=== PATIENT | female | born 1935 | race African-American/Black ===

== ENCOUNTER 2019-08-28 12:05 | Inpatient (IN) | payer MEDICARE ==
[2019-08-28] VITALS (8 sets, daily range): BP systolic 105–133; BP diastolic 50–75
[~2019-08-28] VITALS: Ht 162.6 cm; Wt 59.4 kg
--- OUTSIDE RECORDS SUMMARY | 2019-08-28 12:08 | XMS REPORT ---
Author Author [facility] Address Unknown Phone Unavailable Care Team Providers Care Television Actor Name Role Phone Unavailable Unavailable Problems This patient has no known problems. Allergies, Adverse Reactions, Alerts This patient has no known allergies or adverse reactions. Medications This patient has no known medications.
[2019-08-28] MEDS ORDERED: SODIUM CHLORIDE 0.9% 500ML 500 ML IV ONE ×2 (12:30→14:45)
[2019-08-28 12:50] LABS: BASOPHILS % 0.2 % (0.0-1.0); HEMOGLOBIN 7.1 g/dL (12.0-16.0); LYMPHOCYTES % 2.8 % (18.0-39.1); MEAN CORPUSCULAR HEMOGLOBIN 25.9 pg (28-32); MONOCYTES % 6.6 % (4.4-11.3); NEUTROPHILS % 89.3 % (38.7-80.0); RED BLOOD COUNT 2.74 x10e6/uL (3.6-5.1); RED CELL DISTRIBUTION WIDTH 16.3 % (11.7-14.4)
[2019-08-28 12:51] LABS: LYMPHOCYTES # (AUTO) 0.6 (1.0-3.2); MONOCYTES # (AUTO) 1.5 (0.2-0.8); NEUTROPHILS # (AUTO) 19.7 (2.1-6.9)
[2019-08-28 13:10] LABS: HEMATOCRIT 22.2 % (34.2-44.1)
[2019-08-28 13:17] LABS: CREATINE KINASE MB 0.5 ng/mL (0-5.0)
[2019-08-28 13:18] LABS: ALBUMIN/GLOBULIN RATIO 0.4 (0.8-2.0); ANION GAP 17.4 mmol/L (8-16); CALCIUM 9.5 mg/dL (8.4-10.2); CREATININE, SERUM 2.18 mg/dL (0.57-1.11); MAGNESIUM 2.3 MG/DL (1.3-2.1); POTASSIUM 3.4 mmol/L (3.5-5.1)
[2019-08-28] MEDS ORDERED: FUROSEMIDE INJ 10 MG/ML 2 ML VIAL IV PRN (13:30)
[2019-08-28] MEDS ORDERED: VANCOMYCIN 1GM/NS 250 ML 250 ML IV ONE (13:30)
[2019-08-28] MEDS ORDERED: SODIUM CHLORIDE 0.9% 250ML 250 ML IV ONE (13:30)
[2019-08-28] MEDS ORDERED: ACETAMINOPHEN 1000 MG/100 ML IV ONE (13:40)
--- NOTE | 2019-08-28 13:52 | Diagnostic Imaging Report ---
EXAMINATION: CHEST SINGLE (PORTABLE) INDICATION: Fever COMPARISON: None FINDINGS: LINES/TUBES:Tracheostomy tube projects over the level of the thoracic inlet. Left PICC line terminates in the subclavian vein. EKG leads overlie the chest. LUNGS:The lungs are well-inflated. Left retrocardiac airspace opacity partially silhouetting the left hemidiaphragm. PLEURA:No pleural effusion or pneumothorax. MEDIASTINUM:The cardiomediastinal silhouette appears normal in size and shape. Atherosclerotic calcifications of the thoracic aorta. BONES/SOFT TISSUES:No acute osseous injury. ABDOMEN:No free air under the diaphragm. IMPRESSION: Left retrocardiac airspace opacity, possibly representing subsegmental atelectasis versus superimposed aspiration or pneumonia. Signed by: Amada Santos MD on 08/28/2019 1:50 PM
[2019-08-28] MEDS: CEFEPIME 2 GM/NS 0.9% 100 ML 100 ML IV SCH (14:09)
--- NOTE | 2019-08-28 14:16 | Diagnostic Imaging Report ---
CT BRAIN WO HISTORY: Altered mental status COMPARISON: None. Technique: Noncontrast axial scans were obtained from skull base to the vertex. Coronal and sagittal reconstructions obtained from the axial data. One or more of the following dose reduction techniques were used: Automated exposure control, adjustment of the mA and/or kV according to patient size, and/or utilization of iterative reconstruction technique. DISCUSSION: Scalp/Skull: Unremarkable. Brain sulci: Mildly prominent. Ventricles: Compensatory dilatation. Extra-axial spaces: No masses or fluid collections. Carotid siphon calcifications are present. Parenchyma: Moderate bilateral deep white matter hypodensity is likely chronic microvascular ischemic change. 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 Incidental pineal cyst measures up to 0.8 cm. Otherwise, no masses, hemorrhage, or large vascular territory acute infarct. Dural sinuses: No abnormal densities. Sellar/Suprasellar region: Intact. Skull base: Intact. Incidental findings: Bilateral ocular lens replacement. Bilateral mastoid/middle ear effusions are present. IMPRESSION: 1. No acute intracranial abnormalities. 2. Moderate supratentorial chronic microvascular ischemic change. Generalized cerebral volume loss. Signed by: Dr. Amol Coffey M.D. on 08/28/2019 2:14 PM
[2019-08-28 14:19] LABS: BAND NEUTROPHILS % (MANUAL) 6 %; HYPOCHROMASIA MODERATE; LYMPHOCYTES % (MANUAL) 3 % (19-48); MONOCYTES % (MANUAL) 5 % (3.4-9.0); MYELOCYTES % (MANUAL) 1 % (0-0); NEUTROPHILS % (MANUAL) 83 % (40-74)
[2019-08-28 14:20] LABS: ANISOCYTOSIS MODERATE; POIKILOCYTOSIS SLIGHT
[2019-08-28 14:21] LABS: PLATELET COUNT 203 x10e3/uL (140-360); PLATELET ESTIMATE ADEQUATE; PLATELET MORPHOLOGY COMMENT NORMAL; RBC MORPHOLOGY COMMENT ABNORMAL
[2019-08-28 14:39] LABS: ABG HCO3 29 mmol/L (23-28); ABG PCO2 35 mmHg (41-51); ABG PH 7.52 (7.31-7.41); ABG PO2 100 mmHg (80-105)
[2019-08-28 14:41] LABS: CLARITY,URINE SL CLOUDY (CLEAR); COLOR,URINE YELLOW (YELLOW)
[2019-08-28 14:42] LABS: BILIRUBIN,URINE NEGATIVE (NEGATIVE); KETONES,URINE NEGATIVE (NEGATIVE); LEUKOCYTE ESTERASE ,URINE TRACE (NEGATIVE); NITRITE,URINE NEGATIVE (NEGATIVE); PROTEIN,URINE DIPSTICK 2+ (NEGATIVE); URINE UROBILINOGEN 0.2 mg/dL (0.2 - 1)
[2019-08-28] MEDS ORDERED: ONDANSETRON HCL INJ 2MG/ML 2ML 2 MG/ML VIAL IV PRN (15:00)
[2019-08-28] MEDS ORDERED: DEXTROSE 50% SYRINGE 50 ML IV PRN (15:00)
[2019-08-28 15:01] LABS: AMORPHOUS SEDIMENT,URINE MANY (FEW); BACTERIA,URINE FEW /HPF; EPITHELIAL CELLS,URINE RARE /LPF; WBC,URINE (MAN) 0-5 /HPF (0-5)
--- NOTE | 2019-08-28 15:22 | NUR ---
[id number] consult dictated sepsis r/o HCAP
[2019-08-28] MEDS: AZTREONAM 2GM/NS 100ML 100 ML IV SCH ×2 (16:46→21:39)
[2019-08-28 17:07] LABS: INR 1.21; PROTHROMBIN TIME 15.9 seconds (11.9-14.5)
[2019-08-28 17:08] LABS: PARTIAL THROMBOPLASTIN TIME 39.9 seconds (23.8-35.5)
--- NOTE | 2019-08-28 17:37 | Diagnostic Imaging Report ---
EXAMINATION: CHEST XRAY LINE PLACEMENT INDICATION: Line placement COMPARISON: Chest radiograph 08/28/2019 FINDINGS: LINES/TUBES:Interval placement of right IJ central venous catheter which terminates just beyond the superior cavoatrial junction. Tracheostomy tube terminates in the region of the thoracic inlet. Left PICC line terminates in the left subclavian vein. EKG leads overlie the chest. LUNGS:The lungs are well-inflated. There is left basilar opacity silhouetting the left blanca diaphragm. PLEURA:No pleural effusion or pneumothorax. MEDIASTINUM:The cardiomediastinal silhouette appears unchanged in size and shape. BONES/SOFT TISSUES:No acute osseous injury. ABDOMEN:No free air under the diaphragm. IMPRESSION: Interval placement of right IJ central venous catheter terminating just beyond the superior cavoatrial junction. Line is ready for immediate use. Otherwise, no significant change. Signed by: Amada Santos MD on 08/28/2019 5:35 PM
[2019-08-28] MEDS: INSULIN LISPRO 100 UNIT/1 ML 3ML VIAL SQ SCH ×2 (18:27→21:00)
[2019-08-28 19:25] LABS: CREATINE KINASE MB 0.8 ng/mL (0-5.0)
--- NOTE | 2019-08-28 19:30 | NUR ---
Received patient calm in bed, stable, nonverbal but nods in response to commands
[2019-08-28] MEDS ORDERED: SODIUM CHLORIDE 0.9% 250ML 250 ML ONE (21:21)
--- NOTE | 2019-08-28 21:42 | Consultation ---
DATE OF CONSULTATION: 08/28/2019 Pulmonary Critical Care Consultation CHIEF COMPLAINT: Infiltrates and fever in a patient with chronic ventilator dependence. HISTORY OF PRESENT ILLNESS: The patient is an 84-year-old woman. She has a history of ovarian cancer that required surgery and partial resection 3 to 4 months ago at [facility]. According to the family, there is still some residual tumor. She was not able to undergo chemotherapy because of her overall performance status. After the surgery, she had difficulty weaning from the ventilator and required tracheostomy. The patient was subsequently sent to [place]. She was continued on IV antibiotics and therapy there. She required dialysis at [place] temporarily. She was unable to be weaned from the ventilator, was sent to [facility]. The patient has remained at the [facility] for the past month and now has worsening fever and tachypnea. She was transferred to [facility]. She has an elevated white count and the new infiltrate on chest x-ray. PAST SURGICAL HISTORY: 1. Status post debulking of ovarian tumor as noted above. 2. Status post tracheostomy. PAST MEDICAL HISTORY: 1. Ovarian cancer. 2. COPD. 3. History of renal insufficiency. 4. Hypertension. SOCIAL HISTORY: The patient was a smoker up until about 6 months ago. She is not an active drinker. She is at [facility]. REVIEW OF SYSTEMS: There is a history of fever and chills. There is no headache. She has a tracheostomy. She also has a PICC line in from the [facility]. She has no chest pain. She has some increased phlegm production. She has some abdominal distension. There is no leg edema. She has no new neurological complaints. PHYSICAL EXAMINATION: VITAL SIGNS: Her temperature is 102.8. Her blood pressure is 148/53, she has a pulse of 94, and respiratory rate of 18. She is currently on an assist-control mode of ventilation with a tidal volume of 500 and a sedimentation rate of 16. Tracheostomy site is clean. CARDIAC: Reveals regular rate and rhythm with normal S1 and S2. LUNGS: Auscultation of lungs shows decreased breath sounds at the bases. There is no wheezing. ABDOMEN: Soft, nontender. There is no rebound or guarding. EXTREMITIES: Show no leg edema or calf tenderness. There is a left PICC line in place. The site looks clean. NEUROLOGICAL: Shows no focal abnormalities. LABORATORY DATA: White blood cell count is 22, hemoglobin is 7.1, and the platelet count is 203. The BUN to creatinine ratio is 152/2.18. Blood sugar is 357. AST is 122 and ALT is 187. BNP is 585. Troponin I 0.51. Lactic acid is 2.3. RADIOGRAPHIC DATA: Chest x-ray shows left retrocardiac infiltrate. CT scan of the head shows no acute disease. IMPRESSION: 1. Healthcare-associated pneumonia with severe sepsis, present on admission. 2. Yghqt-js-cumkrjl respiratory failure. 3. Oiays-zk-xczjzfj kidney injury. 4. Nontransmural myocardial infarction. 5. Diabetes with hyperglycemia. 6. Moderate protein-calorie malnutrition. 7. Ovarian cancer. PLAN: 1. Panculture the patient and begin appropriate antibiotics. 2. Fluid bolus at 30 mL/kg. 3. Remove PICC line and place new Trialysis catheter. 4. Continue mechanical ventilation. We will decrease the minute ventilation slightly to prevent worsening respiratory alkalosis. 5. Enteral feedings. 6. Echocardiogram and Cardiology evaluation. 7. Poor prognosis. Josh Powers MD [facility]/MOD[facility] /[id number]
--- NOTE | 2019-08-28 22:00 | NUR ---
Due for blood transfusion, 2 units. blood started, patient stable
--- NOTE | 2019-08-28 22:12 | Consultation ---
DATE OF CONSULTATION: 08/28/2019 HISTORY OF PRESENT ILLNESS: The patient seen in the emergency room stat consultation for acute kidney injury. Ms. Christiano Guzman is known to our service. She was at [facility] after a prolonged stay at [facility] where she was found to have ovarian cancer as well as severe cardiomyopathy. She was on dialysis. Her kidney function recovered. Baseline serum creatinine are 1.5-1.6. If I remember correctly, and then she was taken off dialysis, dialysis catheter was removed. She remained nonoliguric and then was subsequently [facility], but now she comes back in with altered mental status, suspicion of pneumonia and sepsis. White count significantly elevated at 22,000 with a hemoglobin of 7.1. She just had a Watson catheter placed. She is nonoliguric. She has a PICC line with the last dressing change date of August 13. This is in her left arm. LABORATORY DATA: Show sodium 142, potassium 3.4, bicarbonate 31 with a BUN 152, creatinine 2.1. Lactic acid 2.3, magnesium 2.3, AST 122, ALT 187, alkaline phosphatase 254. She had a blood gas done 750, 235, 129. A urinalysis done, specific gravity 1.010, pH 5.5, dipstick positive protein urine RBC, WBC of pending. ALLERGIES: SHE HAS NO APPARENT DRUG ALLERGIES. SOCIAL HISTORY: Of course does not smoke or drink. She has a tracheostomy. She has chronic respiratory failure and has a caregiver, daughter and grandson who were actively participating in her care. She has been started on cefepime 2 g IV every 12h. She is on aztreonam 2 g IV every 8h. She received one time dose of vancomycin. She received 500 mL normal saline bolus. She is due to get packed RBC transfusion. PHYSICAL EXAMINATION: GENERAL: The patient opens her eyes. She does not appear to be in any respiratory distress. She appears comfortable. VITAL SIGNS: She has a blood pressure on the moment of 149/53. She is afebrile. Temperature 102.8, O2 saturation 100%, respiratory rate 18. HEAD AND NECK: No icterus noted. She has a tracheostomy. LUNGS: Harsh vesicular breath sounds. Occasional rhonchi and scattered rales perhaps of the right base. HEART: S1 and S2 audible. ABDOMEN: Otherwise soft, nontender. PEG tube noted. LOWER EXTREMITY: No edema. IMPRESSION AND PLAN: Acute kidney injury superimposed on chronic kidney disease, stage III fortunately nonoliguric with elevated total carbon dioxide level suggestive of chronic respiratory failure, mildly hypokalemic, septic, anemic, possible pneumonia. Plan on IV hydration and packed RBC transfusion. Discussed with Dr. Jay, Dr. Roth and discussed with daughter, caregiver, grandson. I have told them that I am will carry out aggressive medical care, but she is not a dialysis candidate in case treatment fails and her kidney function worsens. Daughter agrees. Discussed with Dr. Roth as well. We will remove the PICC line and get a central line placed. A stat echocardiogram to evaluate left ventricular function. Has underlying ovarian cancer, cardiomyopathy. Overall prognosis is extremely poor. MD EFREN Saravia/SHANE /[id number]
--- NOTE | 2019-08-28 22:16 | Consultation ---
DATE OF CONSULTATION: 08/28/2019 REASON FOR CONSULTATION: Sepsis, pneumonia, healthcare associated pneumonia. HISTORY OF PRESENT ILLNESS: Ms. Alvarado is an 84-year-old female. According to her family, she was diagnosed recently with ovarian cancer. She was at [facility]. From there, she had an extended stay. The patient went to [place]. From there[facility] She had end up tracheostomy. The patient is currently lethargic. According to family, she is usually more alert. The patient is being admitted, I was asked to see her. REVIEW OF SYSTEMS: Could not be obtained. LABORATORY DATA: Reviewed. White count 22.04, her hemoglobin of 7.1 with a platelet 203. Sodium 142, potassium 3.4, creatinine 2.18. Lactic acid 2.3. Liver enzyme, AST 122, ALT 187. PHYSICAL EXAMINATION: GENERAL: She is alert, noncommunicative, follows simple command. HEENT: Normocephalic. NECK: Supple. No JVD. She has a trach. CHEST: Few crackles bilateral. She did have some rhonchi by examination. COR: S1 and S2. No S3, S4, or murmur. ABDOMEN: Soft. Bowel sounds present. No tenderness. EXTREMITIES: No edema. SKIN: No rash. IMPRESSION: Sepsis on admission, concern about healthcare associated pneumonia, acute on chronic kidney disease, anemia, acute on chronic elevated liver enzyme, could be from sepsis, concerned about other, recently ovarian cancer, recent surgery. Would recommend to obtain blood cultures, urine cultures. We will put on vancomycin 1 g q.24 hours, obtain trough with the 3rd dose, cefepime 1 g q.24 hour. Obtain ultrasound of the liver. Obtain CT of abdomen and pelvis with oral contrast. Recheck CBC. Recheck Chem panel. Further recommendations follow. MD SHANKAR Neri/SHANE /[id number]
--- NOTE | 2019-08-28 23:30 | NUR ---
Patient restless and grimacing , nods yes when asked if in pain. Received an order from Dr Pires for Tylenol
[2019-08-29] VITALS (25 sets, daily range): BP systolic 94–158; BP diastolic 50–82
[2019-08-29] MEDS ORDERED: ACETAMINOPHEN 325 MG TAB PEG PRN (00:30)
[2019-08-29] MEDS: CEFEPIME 2 GM/NS 0.9% 100 ML 100 ML IV SCH ×2 (01:00→13:12)
[2019-08-29 01:28] LABS: CREATINE KINASE MB 0.6 ng/mL (0-5.0)
--- NOTE | 2019-08-29 03:00 | NUR ---
transfused 2 units of blood, well tolerated, no reactions, Vitals stable. Calm in bed
[2019-08-29 04:44] LABS: ABG PCO2 38 mmHg (41-51)
[2019-08-29 04:45] LABS: ABG HCO3 30 mmol/L (23-28); ABG PO2 85 mmHg (80-105)
--- NOTE | 2019-08-29 05:00 | NUR ---
Patient had a bowel movement, cleaned, dirty linens Changed and repositioned for comfort
[2019-08-29 05:33] LABS: BASOPHILS % 0.2 % (0.0-1.0); EOSINOPHILS % 0.1 % (0.0-6.0); HEMATOCRIT 25.7 % (34.2-44.1); HEMOGLOBIN 8.6 g/dL (12.0-16.0); LYMPHOCYTES # (AUTO) 1.6 (1.0-3.2); LYMPHOCYTES % 6.9 % (18.0-39.1); MEAN CORPUSCULAR HEMOGLOBIN 27.5 pg (28-32); MEAN CORPUSCULAR HGB CONC 33.5 g/dL (31-35); MEAN CORPUSCULAR VOLUME 82.1 fL (81-99); MONOCYTES # (AUTO) 1.3 (0.2-0.8); MONOCYTES % 5.7 % (4.4-11.3); NEUTROPHILS # (AUTO) 19.9 (2.1-6.9); NEUTROPHILS % 86.1 % (38.7-80.0); PLATELET COUNT 189 x10e3/uL (140-360); RED BLOOD COUNT 3.13 x10e6/uL (3.6-5.1); RED CELL DISTRIBUTION WIDTH 15.4 % (11.7-14.4)
[2019-08-29] MEDS: AZTREONAM 2GM/NS 100ML 100 ML IV SCH ×2 (05:45→13:12)
[2019-08-29 05:58] LABS: CREATINE KINASE MB 0.7 ng/mL (0-5.0)
[2019-08-29 06:26] LABS: ALBUMIN 1.9 g/dL (3.5-5.0); ALBUMIN/GLOBULIN RATIO 0.4 (0.8-2.0); ANION GAP 16.3 mmol/L (8-16); CALCIUM 9.2 mg/dL (8.4-10.2); CREATININE, SERUM 2.07 mg/dL (0.57-1.11); POTASSIUM 3.3 mmol/L (3.5-5.1)
--- NOTE | 2019-08-29 06:43 | Diagnostic Imaging Report ---
EXAMINATION: CHEST SINGLE (PORTABLE) INDICATION: ^resp failure ^[id number] ^0510 COMPARISON: 08/28/2019 FINDINGS: AP view TUBES and LINES: Stable tracheostomy tube and right IJ central line. Partially visualized left upper extremity line. LUNGS: Hyperinflated lungs. Bilateral airspace opacities. PLEURA: No pneumothorax. Small bilateral pleural effusions, left greater than right. HEART AND MEDIASTINUM: The cardiomediastinal silhouette is unremarkable. BONES AND SOFT TISSUES: No acute osseous lesion. Soft tissues are unremarkable. UPPER ABDOMEN: No free air under the diaphragm. IMPRESSION: Hyperinflated lungs, suggestive of COPD. Mild interstitial edema. Small bilateral pleural effusions, left greater than right. Underlying atelectasis/pneumonia cannot be excluded. Signed by: Dr. Demarcus Curiel MD on 08/29/2019 6:40 AM
[2019-08-29 07:17] LABS: LYMPHOCYTES % (MANUAL) 12 % (19-48); MONOCYTES % (MANUAL) 5 % (3.4-9.0); NEUTROPHILS % (MANUAL) 83 % (40-74)
[2019-08-29] MEDS: INSULIN LISPRO 100 UNIT/1 ML 3ML VIAL SQ SCH ×4 (07:31→21:31)
[2019-08-29 07:45] LABS: FERRITIN 4219.95 ng/mL (4.63-204.00)
[2019-08-29] MEDS ORDERED: POTASSIUM CHLORIDE 20MEQ/15ML UDC NG NR (09:30)
--- NOTE | 2019-08-29 10:09 | Progress Note ---
DATE: 08/29/2019 SUBJECTIVE: The Trialysis catheter placed yesterday. She was seen by Infectious Disease. She is being continued on aztreonam and cefepime. She also received one dose of Vanco. The patient remains on the mechanical ventilator. She is on assist control and rate is 16. PHYSICAL EXAMINATION: VITAL SIGNS: The blood pressure is 113/54 and the saturation is 100%. Her ventilator set with an AC of 16 and tidal volume of 450. HEENT: Shows no facial swelling or erythema. CARDIAC: Reveals regular rate and rhythm with normal S1, S2. LUNGS: Auscultation of lungs reveals rhonchorous breath sounds bilaterally. There is no wheezing. ABDOMEN: Soft, nontender. There is no rebound or guarding. EXTREMITIES: Show no leg edema or calf tenderness. LABORATORY DATA: Sodium is 145, and the BUN to creatinine ratio is 148 to 2.07. Glucose is 207. The white blood cell count is 23.1 and the hemoglobin is 8.6. The platelet count is 189. The blood gas is 7.5, 38, 45 and 30. RADIOGRAPHIC DATA: Chest x-ray shows small bilateral pleural effusions, left greater than right with possible underlying atelectasis or pneumonia. IMPRESSION: 1. Healthcare associated pneumonia with severe sepsis, present on admission. 2. Acute on chronic respiratory failure. 3. Acute on chronic kidney injury. 4. Nontransmural myocardial infarction. 5. Ovarian cancer with residual local tumor. 6. Moderate protein-calorie malnutrition. 7. Diabetes. 8. Hyperglycemia. PLAN: 1. Decrease minute ventilation to prevent worsening of respiratory alkalosis. 2. Continue current antibiotics. 3. Enteral feedings. 4. Complete Cardiology evaluation. 5. Consider Oncology evaluation to help clarify prognosis. The prognosis with residual ovarian cancer, chronic respiratory failure, and recurrent sepsis seems extremely poor. Greater than 35 minutes in direct critical care time. MD LIVAN Duarte/ROBERTOL /[id number]
[2019-08-29] MEDS ORDERED: DEXMEDETOMIDINE HCL 200 MCG in SODIUM CHLORIDE 0.9% 50ML 48 ML IV PRN (10:45)
[2019-08-29] MEDS ORDERED: CEFEPIME HCL 1 GM VIAL IV SCH (14:15)
[2019-08-29 14:52] LABS: BASOPHILS # (AUTO) 0.1 (0.0-0.1); BASOPHILS % 0.2 % (0.0-1.0); EOSINOPHILS # (AUTO) 0.1 (0.0-0.4); EOSINOPHILS % 0.5 % (0.0-6.0); HEMOGLOBIN 9.2 g/dL (12.0-16.0); LYMPHOCYTES # (AUTO) 1.3 (1.0-3.2); LYMPHOCYTES % 5.7 % (18.0-39.1); MEAN CORPUSCULAR HGB CONC 32.9 g/dL (31-35); MEAN CORPUSCULAR VOLUME 82.1 fL (81-99); MONOCYTES # (AUTO) 1.1 (0.2-0.8); MONOCYTES % 4.6 % (4.4-11.3); NEUTROPHILS # (AUTO) 20.6 (2.1-6.9); NEUTROPHILS % 87.8 % (38.7-80.0); PLATELET COUNT 199 x10e3/uL (140-360); RED BLOOD COUNT 3.41 x10e6/uL (3.6-5.1); RED CELL DISTRIBUTION WIDTH 15.8 % (11.7-14.4)
[2019-08-29] MEDS: CEFEPIME 1GM/NS 0.9% 50 ML 50 ML IV SCH (15:00)
[2019-08-29 15:11] LABS: ALBUMIN 1.9 g/dL (3.5-5.0); BILIRUBIN,DIRECT 0.4 mg/dL (0.0-0.5)
[2019-08-29] MEDS: VANCOMYCIN 1GM/NS 250 ML 250 ML IV SCH (15:30)
[2019-08-29 15:52] LABS: LYMPHOCYTES % (MANUAL) 7 % (19-48); MONOCYTES % (MANUAL) 7 % (3.4-9.0); NEUTROPHILS % (MANUAL) 86 % (40-74); PLATELET ESTIMATE ADEQUATE; PLATELET MORPHOLOGY COMMENT NORMAL; RBC MORPHOLOGY COMMENT NORMAL
--- NOTE | 2019-08-29 17:25 | Progress Note ---
DATE: 08/29/2019 SUBJECTIVE: Ms. Alvarado is more alert today. She is in intensive care unit. The caregiver is at the bedside. There are no new complaints. She was little bit confused earlier, but currently she seems to be better. The patient has no complaints at the present time. PICC line, which was removed from the left upper extremity and she has a central line on the right jugular. Remains on vent. REVIEW OF SYSTEMS: She is more alert today, comfortable today. PHYSICAL EXAMINATION: GENERAL: She is alert, follows commands, does not seem acute distress. VITAL SIGNS: Stable. Temperature 98.0, when she first came in it was 102.8, her heart rate of 82, respirations 20, and blood pressure 158/76. HEENT: Normocephalic, not icteric. NECK: Supple. CHEST: Few rhonchi. COR: S1-S2. No murmur. ABDOMEN: Soft. Bowel sounds present. No tenderness. No hepatosplenomegaly. EXTREMITIES: No edema. SKIN: There is no rash. JOINTS: There is no erythema or effusion. LABORATORY DATA: Her white count is dropping from 23 to 22.4, hemoglobin of 7.1 which is less than when she first came in, and platelet of 203. Sodium 145, potassium 3.3, creatinine 2.07, AST 118, and ALT 236. Blood cultures; no growth. Urine cultures; no growth. IMAGING: She had a chest x-ray, which showed COPD, small bilateral effusion, maybe pneumonia. MEDICATION LIST: She is currently on insulin, Azactam, and cefepime. She is on Precedex and she has also received one dose of vancomycin. IMPRESSION: 1. Sepsis on admission, more alert, source probably healthcare-associated pneumonia. We will continue cefepime. We will continue vancomycin, but we will adjust for kidney function. Discontinue Azactam. We will change her to cefepime 1 g daily and vancomycin 1 g every day. We will obtain a trough with the 3rd dose. Recheck CBC. Recheck Chem panel. Obtain CT scan of abdomen and pelvis. The patient is known to have history of ovarian cancer with METS according to family, status post surgery. 2. Leukocytosis. Recheck CBC. Recheck Chem panel. 3. Anemia of chronic disease, maybe also component of acute. We will follow with you. Thank you for asking me to see this patient. MD SHANKAR Neri/SHANE /[id number]
--- NOTE | 2019-08-29 17:27 | Diagnostic Imaging Report ---
EXAM: CT Abdomen and Pelvis WITHOUT contrast INDICATION: Anemia. Sepsis. Infection. Ovarian cancer. COMPARISON: None. TECHNIQUE: Abdomen and pelvis were scanned utilizing a multidetector helical scanner from the lung base to the pubic symphysis without administration of IV contrast. Absence of intravenous contrast decreases sensitivity for detection of focal lesions and vascular pathology. Coronal and sagittal reformations were obtained. Routine protocol was performed. IV CONTRAST: None. ORAL CONTRAST: Water RADIATION DOSE: Total DLP: 374.02 mGy*cm Estimated effective dose: (DLP x 0.015 x size factor) mSv COMPLICATIONS: None FINDINGS: LINES and TUBES: Gastrostomy tube in the upper gastric body. LOWER THORAX: Bilateral lower lobe consolidation with air bronchograms. Bilateral trace pleural effusion. 5 mm groundglass nodule in the right middle lobe on image 4 series 2. HEPATOBILIARY: No focal hepatic lesions. No biliary ductal dilation. GALLBLADDER: No radio-opaque stones or sludge. No wall thickening. SPLEEN: No splenomegaly. PANCREAS: No focal masses or ductal dilatation. ADRENALS: No adrenal nodules KIDNEYS/URETERS: No hydronephrosis. No cystic or solid mass lesions. No stones. GI TRACT: No abnormal distention, wall thickening, or evidence of bowel obstruction. There are diverticula within the colon without evidence of diverticulitis. Appendix is not visualized. Large volume of stool within the rectum, associated with mild wall thickening of the rectum may reflect stercoral colitis. Postsurgical changes involving the cecum and terminal ileum. PELVIC ORGANS/BLADDER: Small volume of free fluid within the pelvis. Full catheter within the urinary bladder which is decompressed and contains a small volume of nondependent air. Status post hysterectomy. LYMPH NODES: No lymphadenopathy. VESSELS: There is moderate atherosclerotic disease in the aorta and major arterial branches. PERITONEUM / RETROPERITONEUM: No free air or fluid. BONES: There are degenerative changes in the lumbar spine. SOFT TISSUES: Bilateral calcified injection granulomata. IMPRESSION: 1. Bilateral lower lobe consolidation. 2. Findings may reflect constipation with stercoral colitis. 3. Diverticulosis coli without diverticulitis. 4. Small volume fluid within the pelvis. Signed by: Dr. Sis Infante M.D. on 08/29/2019 5:25 PM
--- NOTE | 2019-08-29 18:45 | NUR ---
Report received. Assumed care. Assessment done. See interventions. Vent to trach. Vent settings: TV 400, FIO2 45%, PRVC 16 & PEEP 5cm. PEG tube with tube feeding @ 20ml/hr with 300ml H2O Q4H. IV Precedex @ 0.5 mcg/kg/hr.
[2019-08-29] MEDS ORDERED: DEXMEDETOMIDINE 200MCG/NS 50ML 50 ML IV ONE (22:17)
[2019-08-29] MEDS ORDERED: SODIUM CHLORIDE 0.9% 50ML 0 ML ONE (22:17)
[2019-08-30] VITALS (25 sets, daily range): BP systolic 101–180; BP diastolic 52–82
--- NOTE | 2019-08-30 00:33 | NUR ---
New Tolu wan.
[2019-08-30 05:20] LABS: BASOPHILS % 0.1 % (0.0-1.0); EOSINOPHILS # (AUTO) 0.1 (0.0-0.4); EOSINOPHILS % 0.6 % (0.0-6.0); HEMATOCRIT 27.6 % (34.2-44.1); HEMOGLOBIN 8.8 g/dL (12.0-16.0); LYMPHOCYTES # (AUTO) 1.4 (1.0-3.2); LYMPHOCYTES % 6.3 % (18.0-39.1); MEAN CORPUSCULAR HEMOGLOBIN 26.7 pg (28-32); MEAN CORPUSCULAR HGB CONC 31.9 g/dL (31-35); MEAN CORPUSCULAR VOLUME 83.9 fL (81-99); MONOCYTES # (AUTO) 1.1 (0.2-0.8); NEUTROPHILS # (AUTO) 19.3 (2.1-6.9); NEUTROPHILS % 86.8 % (38.7-80.0); PLATELET COUNT 207 x10e3/uL (140-360); RED BLOOD COUNT 3.29 x10e6/uL (3.6-5.1)
--- NOTE | 2019-08-30 06:03 | NUR ---
Throughout the night pt was observed pulling vent tubing off. Advised of importance of not taking off.
[2019-08-30 06:04] LABS: ALBUMIN 1.8 g/dL (3.5-5.0); ALBUMIN/GLOBULIN RATIO 0.3 (0.8-2.0); ANION GAP 18.3 mmol/L (8-16); CALCIUM 9.4 mg/dL (8.4-10.2); CREATININE, SERUM 2.21 mg/dL (0.57-1.11); POTASSIUM 4.3 mmol/L (3.5-5.1)
[2019-08-30] MEDS ORDERED: DEXMEDETOMIDINE 200MCG/NS 50ML 50 ML IV ONE ×2 (06:41→22:14)
--- NOTE | 2019-08-30 08:16 | Diagnostic Imaging Report ---
EXAMINATION: CHEST SINGLE (PORTABLE) INDICATION: ^Resp Failure ^[id number] ^0610 COMPARISON: CT abdomen and pelvis 08/29/2019 and chest radiograph 08/29/2019 FINDINGS: AP view TUBES and LINES: Stable tracheostomy tube and right IJ central venous catheter with tip overlying the cavoatrial junction. LUNGS: Lungs are well inflated. Bilateral central pulmonary vascular congestion, improved. Bibasilar consolidations, unchanged and suggestive of aspiration or pneumonia. PLEURA: Small left pleural effusion, stable. No pneumothorax. HEART AND MEDIASTINUM: The cardiomediastinal silhouette is unremarkable.. BONES AND SOFT TISSUES: No acute osseous lesion. Soft tissues are unremarkable. UPPER ABDOMEN: No free air under the diaphragm. IMPRESSION: Improvement bilateral central pulmonary vascular congestion. Unchanged bibasilar consolidations suggestive of aspiration or pneumonia. Signed by: Dr. Tammy Pimentel M.D. on 08/30/2019 8:14 AM
[2019-08-30] MEDS: INSULIN LISPRO 100 UNIT/1 ML 3ML VIAL SQ SCH ×4 (08:31→20:43)
[2019-08-30] MEDS: METRONIDAZOLE 500MG/NS 100ML 100 ML IV SCH ×3 (09:39→22:12)
--- NOTE | 2019-08-30 11:20 | NUR ---
Nutrition Intervention Note RD Recommendation(s) for Physician:Increase Glucerna 1.2 as tolerated to a goal rate of 60ml/hr as ordered with fluid needs per fluid status Plan of Care: RD following, monitoring for tolerance and adequacy Nutrition reason for involvement: Nutrition Risk Trigger MST RD Assessment Initial encounter with patient. Glucerna 1.2 infusing at 30ml/hr with 300ml H2O flush every 4 hours per nurse which provides 864 kcals, 43.2g of protein and 2379ml of free H20. Pt with chronic went dependence. Unable to obtain a nutrition history from the patient. Pt is not a candidate for dialysis at this time per MD note. Principal Problems/Diagnoses: AMS, Sepsis, Renal failure, pneumonia PMH:Dysphagia, ovarian tumor with metastasis, COPD, renal insufficiency/CKD stage 3 per MD GI: soft non tender Skin: intact Labs: 08/30/2019) Bun/Cr 155/2.21, Na 144, Cl 104, glucose 152 Meds: (08/30/2019) MAR reviewed. Lasix, insulin Ht:64 in. Wt:130lbs BMI:22.3kg/M2 IBW:120lbs Malnutrition Evaluation (08/30/2019) The patient has been diagnosed with MODERATE protein-calorie malnutrition per MD. Fat loss: unable to evaluate Muscle loss: unable to evaluate Supporting Evidence: Fluid accumulation: unable to evaluate Functional Status: unable to evaluate Nutrition Prescription (Diet Order):NPO Estimated Nutritional Needs: 1477 - 1772calories/day (25-30 kcal/kg/BW) 60-89g protein/day (1-1.5 g pro/kg/BW) Diet Adequacy: Meeting fluid needs, Not meeting calorie needs, Not meeting protein needs Diet Education Needs Assessment: Diet education not indicated,. Nutrition Care Level:Moderate Nutrition Diagnosis: Swallowing difficulty related to Goal: Patient will meet 75-100% of estimated needs by follow up Progress: Progressing Interventions: Commercial food, Composition, Rate, Route, IVF Monitoring/Evaluation: Total energy intake, Total protein intake, Formula/Solution, IVF, Prescription medication, Weight change Signed: Ulysses Torrez RD, LD, [facility]
--- NOTE | 2019-08-30 12:26 | NUR ---
PATIENT GRANDSON IS AT THE BEDSIDE BUT HE IS KEEP HAVING TO PREVENT THE PATIENT FROM DISCONNECTING HERSELF FROM THE VENT CONNECTED TO HER TRACH. I EXPLAINED TO THE PATIENT THAT SHE HAS TO STOP PULLING HER VENTILATOR OFF HER TRACH BECAUSE WITHOUT IT SHE WILL HAVE A HARD TIME BREATHING. THE PATIENT IS VERY IRRITATED. PLACED A TRACH TIE AROUND THE VENT AND THE PATIENT TRACH TO KEEP IT ON. IT WILL ALLOW US TO CONTINUE TO CARE PROPERLY FOR HER TRACH WITH VENTILATION, TRACH CARE, SUCTION WITHOUT ALLOWING HER TO KEEP PULLING HERSELF OFF THE VENTILATOR
[2019-08-30 12:29] LABS: LYMPHOCYTES % (MANUAL) 6 % (19-48); MONOCYTES % (MANUAL) 6 % (3.4-9.0)
[2019-08-30 12:30] LABS: BAND NEUTROPHILS % (MANUAL) 2 %; NEUTROPHILS % (MANUAL) 86 % (40-74); PLATELET ESTIMATE ADEQUATE; PLATELET MORPHOLOGY COMMENT NORMAL; RBC MORPHOLOGY COMMENT NORMAL
--- NOTE | 2019-08-30 12:52 | Progress Note ---
DATE: 08/30/2019 SUBJECTIVE: The patient remains on mechanical ventilation. She was switched to pressure support and CPAP very briefly this morning, but became tachypneic. She continues to require enteral feedings. PHYSICAL EXAMINATION: VITAL SIGNS: The blood pressure is 147/74 and the saturation is 99%. HEENT: Shows no facial swelling or erythema. CARDIAC: Reveals regular rate and rhythm with normal S1 and S2. There are no murmurs or rubs heard. LUNGS: Auscultation of lungs reveals rhonchorous breath sounds bilaterally. There is no wheezing. ABDOMEN: Soft, nontender. There is no rebound or guarding. EXTREMITIES: Show no leg edema or calf tenderness. There is no cyanosis or clubbing. SKIN: Shows no rashes. LABORATORY DATA: White blood cell count is 22.2 and hemoglobin is 8.8. The platelet count is 207. The BUN to creatinine ratio is 155/2.21 and the sodium is 144. Albumin is 1.4. RADIOGRAPHIC DATA: Chest x-ray shows bilateral vascular congestion and bibasilar infiltrates. CT scan of the abdomen and pelvis shows bibasilar infiltrates at the lung bases. The patient also has diverticulosis and a small amount of fluid in the pelvis. IMPRESSION: 1. Acute on chronic respiratory failure. 2. Profound neuromuscular weakness and ventilator dependence. 3. Healthcare associated pneumonia with sepsis, present on admission. 4. Severe protein-calorie malnutrition. 5. Ovarian cancer. 6. Anemia secondary to chronic blood loss. 7. Chronic renal failure stage 4. PLAN: 1. Continue current antibiotics. 2. Continue mechanical ventilation. Because of the patient's severe respiratory and muscle weakness and prolonged time on a ventilator (four months), chances of her being successfully wean from the ventilator are very, very small. 3. Await the opinion from Oncology regarding ovarian cancer. 4. Case discussed with the grandson at the bedside. 5. Case also discussed with the granddaughter, Samuel Christine, by telephone this morning. 6. Case discussed with nursing staff. Greater than 35 minutes in direct critical care time. Consider palliative care hospice after further discussion with the other healthcare providers. MD LIVAN Duarte/SHANE /[id number]
[2019-08-30] MEDS: VANCOMYCIN 1GM/NS 250 ML 250 ML IV SCH (14:25)
[2019-08-30] MEDS: CEFEPIME 1GM/NS 0.9% 50 ML 50 ML IV SCH (14:32)
[2019-08-30] MEDS: ALBUTEROL/IPRATROPIUM 3 ML NEB NEB SCH (19:30)
[2019-08-31] VITALS (24 sets, daily range): BP systolic 103–158; BP diastolic 49–81
[2019-08-31] MEDS: DEXMEDETOMIDINE HCL 200 MCG in SODIUM CHLORIDE 0.9% 50ML 48 ML IV PRN ×2 (00:07→19:40)
--- NOTE | 2019-08-31 01:54 | Consultation ---
DATE OF CONSULTATION: 08/30/2019 CONSULTING PHYSICIAN: Tonny Bruce, Hematology-Oncology service. REASON FOR CONSULTATION: Evaluation and management of patient with known history of ovarian cancer as well as anemia. HISTORY OF PRESENTING ILLNESS: Ms. 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 Ki-67 was 80% and tumor was 14.5 x 12.2 x 6.1 cm invading the ovary into the cecal submucosa as well as connective tissue surrounding the bladder. The patient underwent en bloc right hemicolectomy and oophorectomy as well as pericolonic lymph node removal. Postoperatively, patient became vent dependent, requiring prolonged hospitalization. She has been in and out of the hospital multiple times due to respiratory insufficiency, pneumonia and severe anemia, requiring blood transfusion. Due to her performance status and being vent dependent, she was not able to receive adjuvant systemic chemotherapy. Now she has presented with fever and respiratory insufficiency, subsequently underwent CT scan of the abdomen and pelvis revealing bilateral lower lobe consolidation as well as left retrocardiac airspace opacity consistent with pneumonia. She has been started on IV antibiotic and admitted to the intensive care unit. Hematology-Oncology has been consulted to assist with the management. Presently, the patient lying comfortably, not in acute distress. [id number]-[id number] is at bedside. PAST MEDICAL HISTORY: 1. 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 2. Chronic obstructive pulmonary disease. 3. Respiratory failure with ventilator dependency. 4. Chronic renal insufficiency. 5. History of iron deficiency anemia, requiring IV iron infusion as well as multiple transfusions. 6. Hypertension. PAST SURGICAL HISTORY: 1. En bloc right hemicolectomy, oophorectomy and removal of the mass on the bladder on May 10, 2019. 2. Status post tracheostomy. SOCIAL HISTORY: The patient is a former smoker, presently residing in [facility]. However, in last six months had multiple hospitalization in [facility] as well as [facility]. ALLERGIES: NO KNOWN DRUG ALLERGIES. CURRENT MEDICATIONS: Reviewed as per electronic medical record. REVIEW OF SYSTEMS: A 14-point review of system unable to obtain. PHYSICAL EXAMINATION: VITAL SIGNS: Reviewed as per electronic medical record. HEAD: Atraumatic and normocephalic. NECK: Supple. CVS: S1, S2 audible. RESPIRATORY: Decreased bilateral air entry. ABDOMEN: Soft. Positive bowel sounds. EXTREMITIES: Negative edema. NEURO: The patient is sleepy. LABORATORY DATA: White blood cell count of 22.2, hemoglobin 8.8, hematocrit 27.6, platelet 207, BUN 155, creatinine 2.2. ASSESSMENT AND PLAN: Ms. Alvarado is a very pleasant 84-year-old female with known history of hypertension, hyperlipidemia, chronic obstructive pulmonary disease, chronic renal insufficiency as well as diagnosis of metastatic ovarian cancer, requiring en bloc right hemicolectomy, hysterectomy, and removal of the bladder mass. 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 Postoperatively, she began vent dependent, requiring tracheostomy. In the last six months, she had multiple hospitalizations due to pneumonia and severe anemia. She is not able to receive adjuvant systemic chemotherapy due to her performance status and comorbidities. Now, she is hospitalized due to fever and respiratory insufficiency. Workup revealed bilateral lower lobe consolidations as well as retrocardiac density consistent with pneumonia. She is started on IV antibiotics. Hematology-Oncology has been consulted to assist with the management. I reviewed the records and discussed at length with the patient and granddaughter about her current disease and importance of monitoring. She already has been started on IV antibiotic for underlying pneumonia. 1. Respiratory insufficiency/pneumonia. The patient is ventilator dependent and now presents with pneumonia. She has been seen and evaluated by Pulmonary as well as Infectious Disease Service. Presently on IV antibiotics. 2. Ovarian cancer. The patient has been diagnosed with high-grade serous ovarian carcinoma with Ki-67 of more than 80%. She had a debulking surgery including right hemicolectomy, oophorectomy and removal of the mass from the dome of bladder. She has not received any adjuvant treatment. Current CT scan did not show any visible recurrence. From Oncologic standpoint, she needs just close monitoring. However, I will check a CA-125. 3. Anemia. The patient has anemia of multifactorial etiology. Probably combination of anemia of chronic disease as well as iron deficiency anemia. I will get baseline anemia workup. She will probably require IV iron infusion, which she required in the past. She will also require Procrit therapy as she is developing renal insufficiency. 4. Renal insufficiency. The patient has been seen and evaluated by Nephrology team and workup in progress. Thank you for the consult. I will continue to be available. Please call with questions. MD SAULO Gregg/MODL /[id number]
[2019-08-31] MEDS: METRONIDAZOLE 500MG/NS 100ML 100 ML IV SCH ×3 (05:20→21:50)
[2019-08-31 05:24] LABS: BASOPHILS # (AUTO) 0.1 (0.0-0.1); BASOPHILS % 0.3 % (0.0-1.0); EOSINOPHILS # (AUTO) 0.4 (0.0-0.4); EOSINOPHILS % 1.6 % (0.0-6.0); HEMATOCRIT 27.9 % (34.2-44.1); LYMPHOCYTES # (AUTO) 2.2 (1.0-3.2); LYMPHOCYTES % 9.8 % (18.0-39.1); MEAN CORPUSCULAR HEMOGLOBIN 27.2 pg (28-32); MEAN CORPUSCULAR HGB CONC 32.3 g/dL (31-35); MEAN CORPUSCULAR VOLUME 84.3 fL (81-99); MONOCYTES # (AUTO) 1.2 (0.2-0.8); MONOCYTES % 5.4 % (4.4-11.3); NEUTROPHILS % 79.4 % (38.7-80.0); PLATELET COUNT 227 x10e3/uL (140-360); RED BLOOD COUNT 3.31 x10e6/uL (3.6-5.1); RED CELL DISTRIBUTION WIDTH 16.9 % (11.7-14.4)
[2019-08-31 05:50] LABS: ALBUMIN 1.7 g/dL (3.5-5.0); ALBUMIN/GLOBULIN RATIO 0.3 (0.8-2.0); ANION GAP 20.2 mmol/L (8-16); CALCIUM 9.5 mg/dL (8.4-10.2); CREATININE, SERUM 2.13 mg/dL (0.57-1.11); POTASSIUM 4.2 mmol/L (3.5-5.1)
[2019-08-31 06:12] LABS: FERRITIN > 2000.00 ng/mL (4.63-204.00)
[2019-08-31 06:39] LABS: RETICULOCYTE % 0.8 % (0.8-2.2)
[2019-08-31] MEDS: ALBUTEROL/IPRATROPIUM 3 ML NEB NEB SCH ×2 (07:14→19:10)
--- NOTE | 2019-08-31 08:06 | Diagnostic Imaging Report ---
EXAMINATION: CHEST SINGLE (PORTABLE) INDICATION: ^Resp Failure ^[id number] ^0520 COMPARISON: chest radiograph 08/30/2019 FINDINGS: AP view TUBES and LINES: Stable tracheostomy tube and right IJ central venous catheter with tip overlying the cavoatrial junction. LUNGS: Bilateral central pulmonary vascular congestion, improved. Bibasilar consolidations, unchanged and suggestive of aspiration or pneumonia. Bilateral pulmonary venous congestion. Bibasilar subsegmental atelectasis. PLEURA: Small left pleural effusion, stable. No pneumothorax. HEART AND MEDIASTINUM: The cardiomediastinal silhouetteborderline enlarged. BONES AND SOFT TISSUES: No acute osseous lesion. Soft tissues are unremarkable. UPPER ABDOMEN: No free air under the diaphragm. IMPRESSION: Stable examination. Unchanged bibasilar consolidations suggestive of aspiration or pneumonia. Signed by: Dr. Sis Infante M.D. on 08/31/2019 8:04 AM
--- NOTE | 2019-08-31 08:59 | Diagnostic Imaging Report ---
PROCEDURE: Non-tunneled central venous catheter placement Procedural Personnel Attending physician(s): Amada Santos MD Fellow physician(s): None Resident physician(s): None Advanced practice provider(s): None Pre-procedure diagnosis: Sepsis Post-procedure diagnosis: Same Indication: Administration of intravenous medications Additional clinical history: None Complications: No immediate complications. IMPRESSION: Insertion of right-sided non-tunneled triple-lumen temporary central venous catheter. Plan: Chest radiograph prior to use. PROCEDURE SUMMARY: - Venous access with ultrasound guidance - Non-tunneled central venous catheter insertion - Additional procedure(s): None PROCEDURE DETAILS: Pre-procedure Consent: Informed consent for the procedure including risks, benefits and alternatives was obtained and time-out was performed prior to the procedure. Preparation (MIPS): The site was prepared and draped using all elements of maximal sterile barrier technique including sterile gloves, sterile gown, cap, mask, large sterile sheet, sterile ultrasound probe cover, hand hygiene and cutaneous antisepsis with 2% chlorhexidine. Medical reason for site preparation exception (MIPS): Not applicable Anesthesia/sedation Level of anesthesia/sedation: No sedation Access Local anesthesia was administered. The vessel was sonographically evaluated and determined to be patent. Real time ultrasound was used to visualize needle entry into the vessel and a permanent image was stored. Vein accessed: Internal jugular vein Access technique: Micropuncture set with 21 gauge needle Catheter placement The access site was dilated and the catheter was placed into the vein over a wire. A sterile dressing was applied. Catheter placed: Bard Catheter size (Occitan): 7 Catheter length (cm): 16 Catheter flush: Normal saline Catheter securement technique: Non-absorbable suture Radiation Dose None. Ultrasound only. Additional Details Additional description of procedure: None Equipment details: None Specimens removed: None Estimated blood loss (mL): Less than 10 Standardized report: [email or web address] Attestation Signer name: Amada Santos MD I attest that I was present for the entire procedure. I reviewed the stored images and agree with the report as written. Signed by: Amada Santos MD on 08/31/2019 8:57 AM
[2019-08-31 10:07] LABS: % IRON SATURATION 18 % (15-50); IRON 36 ug/dL (50-170); TOTAL IRON BINDING CAPACITY 199 ug/dL (261-478); TRANSFERRIN 142 mg/dL (180-382)
[2019-08-31] MEDS: INSULIN LISPRO 100 UNIT/1 ML 3ML VIAL SQ SCH ×4 (11:17→21:00)
--- NOTE | 2019-08-31 11:41 | NUR ---
Order received for LTAC. Spoke to Samuel Christine (granddaughter) [phone], who states her grandmother was at [facility] and then transferred to [facility] She chooses [facility]. Notified Iram with [facility], also asked her to please check the medicare days per Dr. Pires.
[2019-08-31] MEDS: CEFEPIME 1GM/NS 0.9% 50 ML 50 ML IV SCH (14:24)
--- NOTE | 2019-08-31 15:07 | NUR ---
HEMATOLOGY/ONCOLOGY PROGRESS NOTE CHIEF COMPLAINTS: Respiratory distress, PNA, ovarian cancer HISTORY OF PRESENT ILLNESS: Resting comfortably, appears NAD. On trach, vent dependent. Discussed GOC with box covering machine operator at bedside. REVIEW OF SYSTEMS: A 14-point review of system limited secondary to patient clinical condition. PHYSICAL EXAMINATION: VITAL SIGNS: Reviewed as per electronic medical record. HEAD: Atraumatic and normocephalic. NECK: Supple. Trach in place. CVS: S1, S2 audible. RESPIRATORY: Decreased bilateral air entry. ABDOMEN: Soft. Positive bowel sounds. EXTREMITIES: Negative edema. NEURO: The patient is sleepy. LABORATORY DATA: Reviewed per electronic medical record. ASSESSMENT AND PLAN: Ms. Alvarado is a very pleasant 84-year-old female with known history of hypertension, hyperlipidemia, chronic obstructive pulmonary disease, chronic renal insufficiency as well as diagnosis of metastatic ovarian cancer, requiring en bloc right hemicolectomy, hysterectomy, and removal of the bladder mass. 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 Postoperatively, she began vent dependent, requiring tracheostomy. In the last six months, she had multiple hospitalizations due to pneumonia and severe anemia. She is not able to receive adjuvant systemic chemotherapy due to her performance status and comorbidities. Now, she is hospitalized due to fever and respiratory insufficiency. Workup revealed bilateral lower lobe consolidations as well as retrocardiac density consistent with pneumonia. She is started on IV antibiotics. Hematology-Oncology has been consulted to assist with the management. 1. Respiratory insufficiency/pneumonia: The patient is ventilator dependent and has recurrent pneumonia. She remains on IV antibiotics and Duoneb as needed. Noted stable leukocytosis. Pulmonary and ID on board. 2. Ovarian cancer: The patient has been diagnosed with high-grade serous ovarian carcinoma with Ki-67 of more than 80%. She had a debulking surgery incl uding right hemicolectomy, oophorectomy and removal of the mass from the dome of bladder. She has not received any adjuvant treatment. Current CT scan did not show any visible recurrence. From Oncologic standpoint, she needs just close monitoring. CA 125 pending, will follow up results. Supportive care for now. 3. Anemia: Multifactorial. Secondary to anemia of chronic disease as well as iron deficiency anemia. Continue Procrit therapy as she is developing renal insufficiency. Will hold off on IV Iron for now as patient ferritin severely elevated > 2000 likely due to underlying infection/inflammation/malignancy. Hemoglobin stable. Monitor for now. 4. Renal insufficiency: Creatinine stable. Nephrology on board. 5. DVT prophylaxis: Start patient on Lovenox 30mg sq daily, renally dosed. 6. Goals of care: Patient appears hospice appropriate. Above plan discussed with Dr. Bruce. Thank you for the consult. I will continue to be available. Please call with questions.
--- NOTE | 2019-08-31 15:07 | NUR ---
HEMATOLOGY/ONCOLOGY PROGRESS NOTE CHIEF COMPLAINTS: Respiratory distress, PNA, ovarian cancer HISTORY OF PRESENT ILLNESS: Resting comfortably, appears NAD. On trach, vent dependent. REVIEW OF SYSTEMS: A 14-point review of system unable to obtain. PHYSICAL EXAMINATION: VITAL SIGNS: Reviewed as per electronic medical record. HEAD: Atraumatic and normocephalic. NECK: Supple. Trach in place. CVS: S1, S2 audible. RESPIRATORY: Decreased bilateral air entry. ABDOMEN: Soft. Positive bowel sounds. EXTREMITIES: Negative edema. NEURO: The patient is sleepy. LABORATORY DATA: Reviewed per electronic medical record. ASSESSMENT AND PLAN: Ms. Alvarado is a very pleasant 84-year-old female with known history of hypertension, hyperlipidemia, chronic obstructive pulmonary disease, chronic renal insufficiency as well as diagnosis of metastatic ovarian cancer, requiring en bloc right hemicolectomy, hysterectomy, and removal of the bladder mass. 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 Postoperatively, she began vent dependent, requiring tracheostomy. In the last six months, she had multiple hospitalizations due to pneumonia and severe anemia. She is not able to receive adjuvant systemic chemotherapy due to her performance status and comorbidities. Now, she is hospitalized due to fever and respiratory insufficiency. Workup revealed bilateral lower lobe consolidations as well as retrocardiac density consistent with pneumonia. She is started on IV antibiotics. Hematology-Oncology has been consulted to assist with the management. 1. Respiratory insufficiency/pneumonia: The patient is ventilator dependent and has recurrent pneumonia. She remains on IV antibiotics and Duoneb as needed. Noted stable leukocytosis. Pulmonary and ID on board. 2. Ovarian cancer: The patient has been diagnosed with high-grade serous ovarian carcinoma with Ki-67 of more than 80%. She had a debulking surgery incl uding right hemicolectomy, oophorectomy and removal of the mass from the dome of bladder. She has not received any adjuvant treatment. Current CT scan did not show any visible recurrence. From Oncologic standpoint, she needs just close monitoring. CA 125 pending, will follow up results. Supportive care for now. 3. Anemia: Multifactorial. Secondary to anemia of chronic disease as well as iron deficiency anemia. Continue Procrit therapy as she is developing renal insufficiency. Will hold off on IV Iron for now as patient ferritin severely elevated > 2000 likely due to underlying infection/inflammation/malignancy. Hemoglobin stable. Monitor for now. 4. Renal insufficiency: Creatinine stable. Nephrology on board. 5. DVT prophylaxis: Start patient on Lovenox 30mg sq daily, renally dosed. Above plan discussed with Dr. Bruce. Thank you for the consult. I will continue to be available. Please call with questions.
--- NOTE | 2019-08-31 15:44 | Progress Note ---
DATE: 08/31/2019 Pulmonary Critical Care Progress Note SUBJECTIVE: The patient remains on the mechanical ventilator. She was seen by Oncology yesterday. She is seen by Wound Care for her sacral decubitus ulcers. She was seen by Palliative Care. PHYSICAL EXAMINATION: VITAL SIGNS: The patient is afebrile. The blood pressure is 124/62 and the saturation is 100%. HEENT: Shows no facial swelling or erythema. CARDIAC: Reveals regular rate and rhythm with normal S1, S2. LUNGS: Auscultation of lungs shows clear breath sounds bilaterally. There is no wheezing. ABDOMEN: Soft, nontender. There is no rebound or guarding. EXTREMITIES: Show no leg edema or calf tenderness. LABORATORY DATA: White blood cell count is 22.6 and hemoglobin is 9. The platelet count is 227. The BUN to creatinine ratio is 145 to 2.13. The other electrolytes are within normal limits. RADIOGRAPHIC DATA: Chest x-ray shows bibasilar consolidations at the lung bases. IMPRESSION: 1. [id number]-yx-[id number] respiratory failure. 2. Profound neuromuscular weakness with ventilator dependence. 3. Healthcare-associated pneumonia with severe sepsis, present on admission. 4. Metastatic ovarian cancer. 5. Severe protein-calorie malnutrition. 6. Anemia, secondary to chronic blood loss. 7. Decubitus breakdown of the sacrum. PLAN: 1. Continue current antibiotics. 2. Prognosis is very poor. The patient is being seen by Palliative Care. 3. Continue enteral feedings. 4. Case was discussed with daughter. Josh Powers MD [facility]/ROBERTOL /[id number]
[2019-08-31] MEDS ORDERED: EPOETIN ALFA-EPBX 10,000 UNIT/ML VIAL SC ONE (16:00)
[2019-08-31] MEDS: ENOXAPARIN 30 MG/0.3 ML SYR SC SCH (16:11)
--- NOTE | 2019-08-31 17:20 | NUR ---
WOUND CARE CONSULT 84 YO MALE HX OF AMS, SEPSIS, PNEAUMONIA, RENAL FAILURE , DECUBITUS FROYLAN 11 PATIENT ON STRICT PUP STATUS AND INTERVENTIONS AND ALTERNATING PRESSURE MATRESS LABS: WBC- 22.65,HGB- 9,GLUCOSE -233 SKIN ASSESSMENT COMPLETE PATIENT PRESENTS WITH STAGE 3 SACRAL GLUTEAL ULCERATION DTI ARE TO LEFT GLUTE EXTENDING TO SACRUM WITH .2CM OPENING WOUND MEASUREMENT IS 2.5CM X6CM X .2CM PATIENT ALSO HAS UNSTAGEABLE ULCERATION TO LEFT HEEL MEASURES 3CM X3CM COVERED IN DARK BROWN ESCHAR RECOMMENDATIONS: NURSING TO CLEAN SACRO GLUTEAL STAGE 3 ULCERATION WITH NORMAL SALINE DAILY PAT DRY APPLY VENELEX OINTMENT AND COVER WITH PURACOL COLLAGEN DRESSING COVER AND PROTECT WITH ALLEVYN FOAM DRESSING NURSING TO CONTINUE TO MAINTAIN STRICT PUP STATUS AND INTERVENTIONS NURSING TO CONTINUE TO PROMPT AND ASSIST PATIENT WITH FREQUENT TURNS WHILE IN BED ON ORDER TO OFFLOAD DECUBITUS SITE Addendum: 08/31/19 at 1729 by Lopez Little RN Amended: Links added.
[2019-08-31] MEDS ORDERED: DEXMEDETOMIDINE 200MCG/NS 50ML 50 ML IV ONE (19:42)
[2019-09-01] VITALS (22 sets, daily range): BP systolic 104–139; BP diastolic 46–63
[2019-09-01] MEDS ORDERED: DEXMEDETOMIDINE 200MCG/NS 50ML 50 ML IV ONE (01:56)
[2019-09-01] MEDS: DEXMEDETOMIDINE HCL 200 MCG in SODIUM CHLORIDE 0.9% 50ML 48 ML IV PRN ×3 (02:05→20:10)
[2019-09-01] MEDS: METRONIDAZOLE 500MG/NS 100ML 100 ML IV SCH ×2 (05:11→15:35)
[2019-09-01 05:23] LABS: BASOPHILS # (AUTO) 0.1 (0.0-0.1); BASOPHILS % 0.3 % (0.0-1.0); EOSINOPHILS # (AUTO) 0.4 (0.0-0.4); EOSINOPHILS % 2.1 % (0.0-6.0); HEMATOCRIT 26.4 % (34.2-44.1); HEMOGLOBIN 8.5 g/dL (12.0-16.0); MEAN CORPUSCULAR HGB CONC 32.2 g/dL (31-35); MEAN CORPUSCULAR VOLUME 83.8 fL (81-99); MONOCYTES % 5.6 % (4.4-11.3); NEUTROPHILS % 78.3 % (38.7-80.0); PLATELET COUNT 231 x10e3/uL (140-360); RED BLOOD COUNT 3.15 x10e6/uL (3.6-5.1); RED CELL DISTRIBUTION WIDTH 17.6 % (11.7-14.4)
[2019-09-01 05:58] LABS: ALBUMIN 1.8 g/dL (3.5-5.0); ALBUMIN/GLOBULIN RATIO 0.4 (0.8-2.0); ANION GAP 18.1 mmol/L (8-16); CALCIUM 9.1 mg/dL (8.4-10.2); CREATININE, SERUM 1.96 mg/dL (0.57-1.11); POTASSIUM 4.1 mmol/L (3.5-5.1)
[2019-09-01] MEDS: INSULIN LISPRO 100 UNIT/1 ML 3ML VIAL SQ SCH ×3 (07:07→17:04)
[2019-09-01] MEDS: ALBUTEROL/IPRATROPIUM 3 ML NEB NEB SCH ×2 (07:30→19:15)
[2019-09-01] MEDS ORDERED: BALSAM PERU/CASTOR OIL 60 GM OINT...G. TP SCH (09:00)
--- NOTE | 2019-09-01 09:26 | Diagnostic Imaging Report ---
EXAMINATION: CHEST SINGLE (PORTABLE) INDICATION: Pneumonia COMPARISON: Chest radiograph 08/31/2019 FINDINGS: LINES/TUBES:Right IJ central venous catheter terminates at the superior cavoatrial junction. Tracheostomy tube unchanged. EKG leads overlie the chest. LUNGS:The lungs are hyperinflated. There is left basilar opacity silhouetting the left blanca diaphragm. Mild right basilar patchy opacity. PLEURA:No pleural effusion or pneumothorax. MEDIASTINUM:The cardiomediastinal silhouette appears unchanged in size and shape. BONES/SOFT TISSUES:No acute osseous injury. ABDOMEN:No free air under the diaphragm. IMPRESSION: Unchanged bibasilar patchy opacities left greater than right, which may represent subsegmental atelectasis or alternatively superimposed aspiration or pneumonia. Signed by: Amada Santos MD on 09/01/2019 9:24 AM
--- NOTE | 2019-09-01 10:53 | Progress Note ---
DATE: 09/01/2019 SUBJECTIVE: The patient remains on assist-control ventilation. She was seen by palliative care. Arrangements are being made for possible transfer to LTAC. OBJECTIVE: VITAL SIGNS: The blood pressure is 130/57, saturation is 100%. HEENT: Shows no facial swelling or erythema. The tracheostomy site is clean. There is no drainage. The patient is on assist-control at a rate of 16 with a tidal volume of 400. CARDIAC: Reveals a regular rate and rhythm with normal S1 and S2. There are no murmurs or rubs heard. LUNGS: Auscultation of lungs shows decreased breath sounds at the bases. ABDOMEN: Soft, nontender. There is no rebound or guarding. EXTREMITIES: Show no leg edema or calf tenderness. There is some decubitus breakdown on the sacrum. LABORATORY DATA: The sodium is 146. The BUN to creatinine ratio is 130 to 1.96. The blood sugar is 230 to 250. Albumin is 1.8. The white blood cell count is 17 and the hemoglobin is 8.5. The platelet count is 231. IMPRESSION: 1. Appwt-rr-dhfdsxo respiratory failure. 2. Profound neuromuscular weakness leading to the ventilator dependence. 3. Healthcare associated pneumonia with severe sepsis, present on admission. 4. Anemia secondary to chronic blood loss. 5. Severe protein-calorie malnutrition. 6. Ovarian cancer. 7. Chronic renal failure stage 4. PLAN: 1. We will plan for transfer to LTAC. 2. Wound care. 3. Continue current antibiotics. 4. Continue to get free water. 5. Out of bed as tolerated with physical therapy. Josh Powers MD [facility]/MODL /[id number]
[2019-09-01] MEDS: CEFEPIME 1GM/NS 0.9% 50 ML 50 ML IV SCH (15:35)
--- NOTE | 2019-09-01 16:18 | NUR ---
HEMATOLOGY/ONCOLOGY PROGRESS NOTE CHIEF COMPLAINTS: Respiratory distress, PNA, ovarian cancer HISTORY OF PRESENT ILLNESS: Resting comfortably, appears NAD. On trach, vent dependent. Plan transfer to LTAC. More awake and alert today. REVIEW OF SYSTEMS: A 14-point review of system limited as patient mouths words and nods head to answer questions. PHYSICAL EXAMINATION: VITAL SIGNS: Reviewed as per electronic medical record. HEAD: Atraumatic and normocephalic. NECK: Supple. Trach in place. CVS: S1, S2 audible. RESPIRATORY: Decreased bilateral air entry. ABDOMEN: Soft. Positive bowel sounds. EXTREMITIES: Negative edema. NEURO: Awake, alert LABORATORY DATA: Reviewed per electronic medical record. ASSESSMENT AND PLAN: Ms. Alvarado is a very pleasant 84-year-old female with known history of hypertension, hyperlipidemia, chronic obstructive pulmonary disease, chronic renal insufficiency as well as diagnosis of metastatic ovarian cancer, requiring en bloc right hemicolectomy, hysterectomy, and removal of the bladder mass. 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 Postoperatively, she began vent dependent, requiring tracheostomy. In the last six months, she had multiple hospitalizations due to pneumonia and severe anemia. She is not able to receive adjuvant systemic chemotherapy due to her performance status and comorbidities. Now, she is hospitalized due to fever and respiratory insufficiency. Workup revealed bilateral lower lobe consolidations as well as retrocardiac density consistent with pneumonia. She is started on IV antibiotics. Hematology-Oncology has been consulted to assist with the management. 1. Respiratory insufficiency/pneumonia: The patient is ventilator dependent and has recurrent pneumonia. She remains on IV antibiotics and Duoneb as needed. Noted leukocytosis trending down. CXR from today revealed unchanged bibasilar patchy opacities left greater than right, which may represent subsegmental atelectasis or alternatively superimposed aspiration or pneumonia. Pulmonary and ID on board. 2. Ovarian cancer: The patient has been diagnosed with high-grade serous ovarian carcinoma with Ki-67 of more than 80%. She had a debulking surgery incl uding right hemicolectomy, oophorectomy and removal of the mass from the dome of bladder. She has not received any adjuvant treatment. Current CT scan did not show any visible recurrence. From Oncologic standpoint, she needs just close monitoring. CA 125 pending, will follow up results. Supportive care for now. 3. Anemia: Multifactorial. Secondary to anemia of chronic disease as well as iron deficiency anemia. Continue Procrit therapy as she is developing renal insufficiency. Will hold off on IV Iron for now as patient ferritin severely elevated > 2000 likely due t o underlying infection/inflammation/malignancy. Hemoglobin slightly trending down. Monitor for now. 4. Renal insufficiency: Creatinine stable. Nephrology on board. 5. DVT prophylaxis: Start patient on Lovenox 30mg sq daily, renally dosed. 6. GOC/Dispo: PT/OT. Overall prognosis poor, seen and evaluated by Palliative care team. Plan to transfer to LTAC. Above plan discussed with Dr. Bruce. Thank you for the consult. I will continue to be available. Please call with questions.
[2019-09-01] MEDS: ENOXAPARIN 30 MG/0.3 ML SYR SC SCH (17:03)
--- NOTE | 2019-09-01 18:49 | NUR ---
report called to mariluz at [facility]. ems called for transfer
--- NOTE | 2019-09-01 20:16 | NUR ---
Pt transferred to [facility] by EMS. Pt's granddaughter (POA) at bedside. Pt stable, no complaints at this time. All belongings transferred with pt.
== END 2019-09-01 20:15 | DRG 870 ==
LOC: ER 12:05 → ERHOLD 14:52 → ICU 17:19
PROC: 5A1955Z Respiratory Ventilation, Greater than 96 Consecutive Hours (ICD-10-PCS; principal; 2019-08-28)
PROC: 02HV33Z Insertion of Infusion Device into Superior Vena Cava, Percutaneous Approach (ICD-10-PCS; 2019-08-28)
PROC: B548ZZA Ultrasonography of Superior Vena Cava, Guidance (ICD-10-PCS; 2019-08-28)
PROC: 30233N1 Transfusion of Nonautologous Red Blood Cells into Peripheral Vein, Percutaneous Approach (ICD-10-PCS; 2019-08-28)
DX: A41.9 Sepsis, unspecified organism (principal); L89.613 Pressure ulcer of right heel, stage 3; I21.4 Non-ST elevation (NSTEMI) myocardial infarction; K72.00 Acute and subacute hepatic failure without coma; J96.22 Acute and chronic respiratory failure with hypercapnia; E43 Unspecified severe protein-calorie malnutrition; J69.0 Pneumonitis due to inhalation of food and vomit; J95.851 Ventilator associated pneumonia; N17.9 Acute kidney failure, unspecified; C56.1 Malignant neoplasm of right ovary; C78.5 Secondary malignant neoplasm of large intestine and rectum; C78.4 Secondary malignant neoplasm of small intestine; C79.11 Secondary malignant neoplasm of bladder; C79.89 Secondary malignant neoplasm of other specified sites; I13.0 Hypertensive heart and chronic kidney disease with heart failure and stage 1 through stage 4 chronic kidney disease, or unspecified chronic kidney disease; N18.4 Chronic kidney disease, stage 4 (severe); Z99.11 Dependence on respirator [ventilator] status; E11.22 Type 2 diabetes mellitus with diabetic chronic kidney disease; Z87.891 Personal history of nicotine dependence; R65.20 Severe sepsis without septic shock; D63.8 Anemia in other chronic diseases classified elsewhere; E11.65 Type 2 diabetes mellitus with hyperglycemia; E87.6 Hypokalemia; D64.9 Anemia, unspecified; R13.10 Dysphagia, unspecified; R53.81 Other malaise; K52.9 Noninfective gastroenteritis and colitis, unspecified
CPT/HCPCS: 36415; 36556; 36600; 70450; 71045; 74176; 74470; 76937; 77001; 80053; 80076; 81001; 82150; 82550; 82553; 82607; 82728; 82746; 82805; 82947; 82948; 83540; 83605; 83690; 83735; 83880; 84466; 84484; 85025; 85045; 85610; 85651; 85730; 86304; 86850; 86900; 86920; 87040; 87070; 87071; 87086; 87186; 87205; 93005; 93306; 94002; 94003; 94640; 96372; 99285; C1751; J0692; J1650; J3370; J7040; J7050; P9016

== ENCOUNTER 2019-10-01 21:19 | Emergency (ER) | payer MEDICARE ==
[~2019-10-01] VITALS: Ht 162.6 cm; Wt 59.4 kg
--- NOTE | 2019-10-01 23:25 | Diagnostic Imaging Report ---
EXAMINATION: CHEST SINGLE (PORTABLE) COMPARISON: Chest x-ray 09/01/2019, chest x-ray 08/30/2019 INDICATION: ^SOB ^[id number] ^2210 ^Y DISCUSSION: Frontal view of the chest obtained at 2214 hours. HEART AND MEDIASTINUM: The heart is top normal in size and stable in morphology LINES: Tracheostomy is in appropriate position. No central venous lines. LUNGS: Multifocal airspace opacities throughout the right lung, particularly in the upper lobe. Retrocardiac airspace opacity is stable. There is a skinfold in the upper left chest. PLEURA: No large effusions. No pneumothorax. BONES AND SOFT TISSUES: No focal osseous lesion. The soft tissues are normal. IMPRESSION: New right pulmonary infiltrates suggestive of pneumonia. Persistent retrocardiac airspace opacity, suggestive of atelectasis or infiltrate. Signed by: Dr. Chantal Martinez MD on 10/01/2019 11:22 PM
[2019-10-02] MEDS: AZITHROMYCIN 500MG/NS 250 ML 250 ML IV STA ×2 (00:23→01:46)
[2019-10-02] MEDS: CEFEPIME 2 GM/NS 0.9% 100 ML 100 ML IV STA ×2 (00:24→01:18)
[2019-10-02 00:25] LABS: BASOPHILS # (AUTO) 0.1 (0.0-0.1); BASOPHILS % 0.3 % (0.0-1.0); EOSINOPHILS # (AUTO) 0.1 (0.0-0.4); EOSINOPHILS % 0.5 % (0.0-6.0); HEMOGLOBIN 8.7 g/dL (12.0-16.0); LYMPHOCYTES # (AUTO) 1.1 (1.0-3.2); LYMPHOCYTES % 5.9 % (18.0-39.1); MEAN CORPUSCULAR HEMOGLOBIN 25.7 pg (28-32); MEAN CORPUSCULAR HGB CONC 32.2 g/dL (31-35); MEAN CORPUSCULAR VOLUME 79.6 fL (81-99); MONOCYTES # (AUTO) 0.8 (0.2-0.8); MONOCYTES % 4.3 % (4.4-11.3); NEUTROPHILS % 88.3 % (38.7-80.0); PLATELET COUNT 382 x10e3/uL (140-360); RED BLOOD COUNT 3.39 x10e6/uL (3.6-5.1); RED CELL DISTRIBUTION WIDTH 18.1 % (11.7-14.4)
--- NOTE | 2019-10-02 00:25 | NUR ---
Unable to gain IV access at this time. MD dotsonfied. Instructed that Axel will place a PICC denis.
[2019-10-02 00:38] LABS: ALBUMIN 2.5 g/dL (3.5-5.0); ALBUMIN/GLOBULIN RATIO 0.4 (0.8-2.0); ANION GAP 20.9 mmol/L (8-16); CALCIUM 9.6 mg/dL (8.4-10.2); CREATININE, SERUM 1.33 mg/dL (0.57-1.11); POTASSIUM 5.9 mmol/L (3.5-5.1)
--- NOTE | 2019-10-02 00:38 | NUR ---
[facility] called at this time. ETA 30-45 minutes.
[2019-10-02] MEDS ORDERED: CALCIUM CHLORIDE 10% 1.36 MEQ/ML 10ML SYR IV STA (00:58)
[2019-10-02] MEDS ORDERED: DEXTROSE 50% SYRINGE 50 ML IV STA (00:58)
[2019-10-02] MEDS ORDERED: SODIUM BICARBONATE 8.4% INJ 50 ML SYR IV STA (00:58)
[2019-10-02] MEDS ORDERED: INSULIN REGULAR, HUMAN 100 UNIT/1 ML 3ML VIAL IV ONE (01:00)
[2019-10-02] MEDS ORDERED: SODIUM CHLORIDE 0.9% 1000ML 1,000 ML IV ONE (01:00)
[2019-10-02] MEDS ORDERED: INSULIN REGULAR, HUMAN 100 UNIT/1 ML 3ML VIAL ONE (01:08)
[2019-10-02 02:02] VITALS: BP 128/82
== END 2019-10-02 02:16 | disposition other institution (70) ==
LOC: ER 21:19
DX: R06.00 Dyspnea, unspecified (principal); J15.9 Unspecified bacterial pneumonia; I10 Essential (primary) hypertension; E11.9 Type 2 diabetes mellitus without complications; J44.9 Chronic obstructive pulmonary disease, unspecified
CPT/HCPCS: 36415; 71045; 80053; 85025; 87040; 93005; 99285; J0456; J1817; J7030; J7799

== ENCOUNTER 2019-10-19 18:44 | Emergency (ER) | payer MEDICARE ==
[~2019-10-19] VITALS: Ht 162.6 cm; Wt 59.4 kg
--- NOTE | 2019-10-19 21:29 | NUR ---
EMS HERE AT THIS TIME FOR TRANSPORT [facility]. FAMILY AT BEDSIDE.
== END 2019-10-19 21:46 ==
LOC: ER 18:44
DX: J96.12 Chronic respiratory failure with hypercapnia (principal); I10 Essential (primary) hypertension; E11.9 Type 2 diabetes mellitus without complications; J44.9 Chronic obstructive pulmonary disease, unspecified
CPT/HCPCS: 93005; 94002; 99282

== ENCOUNTER 2019-11-13 15:32 | Inpatient (IN) | payer MEDICARE, OTHER ==
[~2019-11-13] VITALS: Ht 162.6 cm; Wt 54.1 kg
[2019-11-13] VITALS (8 sets, daily range): BP systolic 121–154; BP diastolic 60–70
[2019-11-13] MEDS ORDERED: SODIUM CHLORIDE 0.9% 250ML 250 ML IV ONE (16:00)
--- NOTE | 2019-11-13 16:11 | NUR ---
Patients juancho called who is MARTY her name is Hayley Christine and telephone number is [phone]
[2019-11-13 16:22] LABS: BASOPHILS % 0.2 % (0.0-1.0); EOSINOPHILS # (AUTO) 0.8 (0.0-0.4); EOSINOPHILS % 6.7 % (0.0-6.0); LYMPHOCYTES # (AUTO) 1.6 (1.0-3.2); LYMPHOCYTES % 12.6 % (18.0-39.1); MEAN CORPUSCULAR HEMOGLOBIN 24.4 pg (28-32); MEAN CORPUSCULAR HGB CONC 32.4 g/dL (31-35); MEAN CORPUSCULAR VOLUME 75.3 fL (81-99); MONOCYTES # (AUTO) 0.9 (0.2-0.8); MONOCYTES % 7.3 % (4.4-11.3); NEUTROPHILS # (AUTO) 9.1 (2.1-6.9); NEUTROPHILS % 72.7 % (38.7-80.0); PLATELET COUNT 369 x10e3/uL (140-360); RED BLOOD COUNT 2.83 x10e6/uL (3.6-5.1); RED CELL DISTRIBUTION WIDTH 17.5 % (11.7-14.4)
[2019-11-13 16:27] LABS: HEMATOCRIT 21.3 % (34.2-44.1); HEMOGLOBIN 6.9 g/dL (12.0-16.0)
[2019-11-13 16:33] LABS: PROTHROMBIN TIME 13.8 seconds (11.9-14.5)
[2019-11-13 16:34] LABS: PARTIAL THROMBOPLASTIN TIME 33.4 seconds (23.8-35.5)
[2019-11-13 16:43] LABS: ALBUMIN 2.7 g/dL (3.5-5.0); ALBUMIN/GLOBULIN RATIO 0.6 (0.8-2.0); ANION GAP 15.1 mmol/L (8-16); CALCIUM 9.6 mg/dL (8.4-10.2); CREATININE, SERUM 1.61 mg/dL (0.57-1.11); POTASSIUM 4.1 mmol/L (3.5-5.1)
[2019-11-13] MEDS ORDERED: ONDANSETRON HCL INJ 2MG/ML 2ML 2 MG/ML VIAL IV PRN (16:45)
[2019-11-13] MEDS ORDERED: ALBUTEROL/IPRATROPIUM 3 ML NEB NEB PRN (17:45)
[2019-11-13] MEDS ORDERED: DEXTROSE 50% SYRINGE 50 ML IV PRN (17:45)
--- NOTE | 2019-11-13 18:29 | Diagnostic Imaging Report ---
EXAMINATION: CHEST SINGLE (PORTABLE) COMPARISON: Chest x-ray 10/01/2019. INDICATION: CHRONIC VENTILATOR PATIENT, ANEMIA, SOB DISCUSSION: HEART AND MEDIASTINUM: The heart is top normal in size and stable in morphology LINES: Tracheostomy is in appropriate position. No central venous lines. LUNGS: Multifocal airspace opacities throughout the right lung, improved from prior exam. Retrocardiac airspace opacity is stable. There is a skinfold in the upper left chest. BONES AND SOFT TISSUES: No focal osseous lesion. The soft tissues are normal. IMPRESSION: Improved right-sided pneumonia. Persistent retrocardiac airspace opacity, suggestive of atelectasis or infiltrate. Signed by: Jesus Armijo MD on 11/13/2019 6:26 PM
--- NOTE | 2019-11-13 19:48 | Consultation ---
DATE OF CONSULTATION: 11/13/2019 Pulmonary Critical Care Consultation HISTORY OF PRESENT ILLNESS: The patient is an 84-year-old woman. She has a history of ovarian cancer that required debulking. The surgery was subsequently complicated by a respiratory failure at [facility]. She required a tracheostomy and left [facility] to [place] on the ventilator. She was unable to receive her adjuvant chemotherapy. The patient was admitted to [facility] in August of 2019 with bilateral pulmonary infiltrates and healthcare-associated pneumonia. She also had severe neuromuscular weakness and protein-calorie malnutrition. She also had stage IV renal failure and required consultation with Nephrology. She was subsequently transferred back to [facility]. She has been on a ventilator at [facility]. She apparently had a low hemoglobin of 6.9. The staff at [facility] denies any bleeding from the PEG tube or any hematochezia. There has been no hemoptysis or hematemesis. PAST SURGICAL HISTORY: 1. Status post bulking of ovarian cancer as noted above. 2. Status post tracheostomy. PAST MEDICAL HISTORY: 1. Chronic respiratory failure with ventilator dependence. 2. Chronic renal insufficiency, stage IV. 3. Metastatic ovarian cancer. 4. Hypertension. SOCIAL HISTORY: The patient is a former smoker. She has some family support. She is not an active drinker. She lives at [facility]. ALLERGIES: NO KNOWN DRUG ALLERGIES. FAMILY HISTORY: Family history is noncontributory. REVIEW OF SYSTEMS: There is no reported history of fevers. She is not having any headache. She does have a tracheostomy in place. She is not complaining of chest pain or cough. There is no fever. She has no nausea or vomiting. There is no leg edema. PHYSICAL EXAMINATION: VITAL SIGNS: The patient is afebrile. The blood pressure is 106/81, saturation is 100%. She is currently on a PRVC mode of ventilation. HEENT: Shows no facial swelling or erythema. CARDIAC: Reveals regular rate and rhythm with normal S1, S2. LUNGS: Auscultation of lungs reveals clear breath sounds bilaterally. There is no wheezing. ABDOMEN: Soft, nontender. There is no rebound or guarding. There is no leg edema or calf tenderness. There is no cyanosis or clubbing. SKIN: Shows no rashes. NEUROLOGICAL: Shows profound weakness, but no focal abnormalities. LABORATORY DATA: Hemoglobin is 6.9 with an MCV of 75.3. The white blood cell count is 12.5. Platelet count is 369. BUN to creatinine ratio is 63 to 1.61. Other electrolytes are within normal limits. Albumin is 2.3. RADIOGRAPHIC DATA: Chest x-ray from September showed some persistent pulmonary infiltrate. IMPRESSION: 1. Acute on chronic anemia related to chronic blood loss. 2. Chronic respiratory failure. 3. Ovarian cancer. 4. Renal failure, stage IV. 5. Diabetes. 6. Moderate protein-calorie malnutrition. PLAN: 1. Transfuse 2 units of packed red blood cells. 2. Assess for any source of bleeding. 3. Chest x-ray. 4. Continue current ventilator settings. 5. Monitor and control blood sugars. 6. Enteral feedings. 7. DVT prophylaxis. Josh Powers MD [facility]/MODL /[id number]
[2019-11-13] MEDS: INSULIN GLARGINE 100 UNITS/ML VIAL SQ SCH (21:00)
[2019-11-13] MEDS: INSULIN REGULAR, HUMAN 100 UNIT/1 ML 3ML VIAL SQ SCH (21:00)
[2019-11-13] MEDS ORDERED: SODIUM CHLORIDE 0.9% 250ML 250 ML ONE (21:01)
[2019-11-13] MEDS: RISPERIDONE 0.5 MG TAB PO SCH (21:21)
[2019-11-13] MEDS ORDERED: MIDAZOLAM HCL 25 MG in SODIUM CHLORIDE 0.9% 50ML 45 ML IV PRN (22:45)
[2019-11-13] MEDS ORDERED: FENTANYL CITRATE INJ 2,000 MCG in SODIUM CHLORIDE 0.9% 250ML 210 ML IV PRN (22:45)
[2019-11-13] MEDS: LORAZEPAM 0.5 MG TAB PO PRN (22:55)
[2019-11-14] VITALS (26 sets, daily range): BP systolic 110–158; BP diastolic 53–121
[2019-11-14] MEDS: FUROSEMIDE INJ 10 MG/ML 2 ML VIAL IV PRN ×2 (00:21→02:49)
[2019-11-14] MEDS ORDERED: SODIUM CHLORIDE 0.9% 250ML 250 ML ONE (00:28)
[2019-11-14 06:11] LABS: BASOPHILS % 0.2 % (0.0-1.0); EOSINOPHILS # (AUTO) 0.8 (0.0-0.4); EOSINOPHILS % 6.2 % (0.0-6.0); HEMATOCRIT 25.9 % (34.2-44.1); HEMOGLOBIN 8.5 g/dL (12.0-16.0); LYMPHOCYTES # (AUTO) 1.9 (1.0-3.2); LYMPHOCYTES % 14.5 % (18.0-39.1); MEAN CORPUSCULAR HEMOGLOBIN 25.3 pg (28-32); MEAN CORPUSCULAR HGB CONC 32.8 g/dL (31-35); MEAN CORPUSCULAR VOLUME 77.1 fL (81-99); MONOCYTES # (AUTO) 1.1 (0.2-0.8); MONOCYTES % 8.2 % (4.4-11.3); NEUTROPHILS # (AUTO) 9.3 (2.1-6.9); NEUTROPHILS % 70.4 % (38.7-80.0); PLATELET COUNT 351 x10e3/uL (140-360); RED BLOOD COUNT 3.36 x10e6/uL (3.6-5.1); RED CELL DISTRIBUTION WIDTH 16.4 % (11.7-14.4)
[2019-11-14 06:40] LABS: ALBUMIN 2.6 g/dL (3.5-5.0); ALBUMIN/GLOBULIN RATIO 0.6 (0.8-2.0); ANION GAP 17.1 mmol/L (8-16); CALCIUM 9.7 mg/dL (8.4-10.2); CREATININE, SERUM 1.67 mg/dL (0.57-1.11); POTASSIUM 4.1 mmol/L (3.5-5.1)
[2019-11-14] MEDS: FAMOTIDINE 20 MG TAB PO SCH ×2 (08:16→15:44)
[2019-11-14] MEDS: INSULIN REGULAR, HUMAN 100 UNIT/1 ML 3ML VIAL SQ SCH ×4 (08:17→21:00)
--- NOTE | 2019-11-14 14:10 | History and Physical ---
HISTORY OF PRESENT ILLNESS: The patient is an 84-year-old female, chronically on the ventilator. History of ovarian cancer, which was originally admitted to [facility]. After surgery, her condition was complicated by chronic respiratory failure. She got a tracheostomy. She was moved to [facility], then from [facility] to the [facility], and from the [facility] she was moved here because of anemia. She received 2 units of blood transfusion, the hemoglobin improved. No evidence of any active bleeding outside. REVIEW OF SYSTEMS: The patient is on the ventilator, cannot give me any information. ALLERGIES: SHE IS ALLERGIC TO MORPHINE. PAST MEDICAL HISTORY: Diabetes mellitus, ovarian cancer, chronic respiratory failure, chronic obstructive pulmonary disease, chronic renal failure stage 4, anemia of chronic disease, chronically on the ventilator. PHYSICAL EXAMINATION: HEART: Showed regular rhythm. Normal S1, S2 sound. LUNGS: Clear bilaterally. ABDOMEN: Soft. EXTREMITIES: Show no evidence of edema. LABORATORY DATA: On the CBC; white blood count 13.17, hemoglobin 8.5, hematocrit 25.9, and platelet count 351,000, lymphocytes low at 14.5, neutrophils 70.4. On the CMP with sodium 136, potassium 4.1, chloride 96, CO2 of 27, BUN 60, creatinine 1.67, glucose 135, calcium 9.7, total bilirubin 1.4, AST 23, ALT 30, alkaline phosphatase 107, albumin 2.6, globulin 4.6. Coagulation showed PT 13.8, INR 1.0, PTT 33.4. Microbiology has not been done. We have a chest x-ray also, which show some improved right-sided pneumonia, persistent retrocardiac airspace opacity suggestive of atelectasis or infiltrate. FINAL IMPRESSION: 1. Acute anemia. 2. Chronic respiratory failure, on the ventilator. 3. Hypertension. 4. Uncontrolled diabetes mellitus type 2 with chronic renal failure. 5. Chronic obstructive pulmonary disease. 6. Chronic renal failure, stage 4. 7. Aspiration pneumonia. PLAN OF TREATMENT: Anemia workup including stool guaiac, iron, TIBC, ferritin, vitamin B12 level. Consult Dr. Jitendra Pires, consult Dr. Josh Powers for a chronic respiratory failure and consult Dr. Jay from Infectious Disease because of pneumonia. In the meantime, she has been started on Zithromax 500 g IV daily, ceftriaxone 2 g IV daily. Continue with albuterol and Atrovent q.4 hours as needed for shortness of breath, Lovenox 30 mg subcutaneously daily, which we are going to discontinue because of anemia. Continue Pepcid 20 mg twice a day. Continue Lantus 5 units at bedtime. Lorazepam 0.5 mg q.6 hours as needed for anxiety, Zofran 4 mg IV q.4 hours as needed for nausea and vomiting. Continue monitoring blood sugar before meals and at bedtime. Continue Risperdal 0.5 mg at bedtime. MD ROHAN Turcios/SHANE /[id number]
[2019-11-14] MEDS: AZITHROMYCIN 500MG/NS 250 ML 250 ML IV SCH (14:54)
[2019-11-14] MEDS: CEFTRIAXONE SOD 2 GM/NS 100 ML 100 ML IV SCH (14:54)
[2019-11-14 15:38] LABS: FERRITIN 2254.88 ng/mL (4.63-204.00)
--- NOTE | 2019-11-14 15:49 | NUR ---
Nutrition Intervention Note RD Recommendation(s) for Physician: -Continue current TF order: Glucerna 1.2 @50mL/hr, providing 1440kcal, 72g protein, 966mL water -Water flushes per MD -Check gastric tolerance and daily weight Plan of Care: RD following, monitoring for tolerance and adequacy, TF rec Nutrition reason for involvement: New TF RD Assessment 11/13 Chart reviewed. 84yo F, chronically on the ventilator, who was admitted for anemia. Pt has trach collar. Pt is on isolation. Per RN, TF currently running with Glucerna 1.2 @50mL/hr, pt tolerating well without any GI symptoms. No family on bedside. Unable to obtain information from pt. Will continue to monitor and follow. Principal Problems/Diagnoses: 1. Acute on chronic anemia related to chronic blood loss. 2. Moderate protein-calorie malnutrition. PMH: Dysphagia, ovarian tumor with metastasis, COPD, renal insufficiency/CKD stage 4, HTN, DM GI: +PEG Skin: intact Labs: (11/13) Cl 96 L, BUN 60 H, Creatinine 1.67 H, Glucose 145 H, total bilirubin 1.4 H Meds: abx, pepcid, lasix Ht: 64 in. Wt: 126lbs BMI: 21.7kg/m2 IBW: 120lbs +/- 10% Malnutrition Evaluation (11/14/2019) Unable to evaluate at this time. Nutrition Prescription (Diet Order): Glucerna 1.2 @50mL/hr Estimated Nutritional Needs: 1425 1710 calories/day (25-30 kcal/kg/BW) 57 - 85g protein/day (1-1.5 g pro/kg/BW) Diet Adequacy: Meeting fluid needs, meeting calorie needs, meeting protein needs Diet Education Needs Assessment: Diet education not indicated. Nutrition Care Level: Moderate Nutrition Diagnosis: Swallowing difficulty related to aspiration PNA as evidenced by pt requiring EN through PEG for snf nutrition. Goal: Patient will meet 75-100% of estimated needs by follow up Progress: Goal met Interventions: Composition, Rate, Route, IVF Monitoring/Evaluation: Total energy intake, Total protein intake, Formula/Solution, IVF, Prescription medication, Weight change Signed: Meryl Hughes, MS, RD, LD
--- NOTE | 2019-11-14 16:56 | Progress Note ---
DATE: SUBJECTIVE: The patient received her packed red blood cells last night. Her hemoglobin is improved. She was placed on a CPAP of 5 and pressure support of 10 this morning. She did well and is now on a trach collar. She has been on a trach collar for 30 minutes and is tolerating it well. PHYSICAL EXAMINATION: VITAL SIGNS: The blood pressure is 121/53 and saturation is 98%. HEENT: Shows no facial swelling or erythema. CARDIAC: Reveals a regular rate and rhythm with normal S1, S2. LUNGS: Auscultation of lungs reveals decreased breath sounds at the bases. There is no wheezing. ABDOMEN: Soft. There is a feeding tube. EXTREMITIES: Show no leg edema. LABORATORY DATA: White blood cell count is 13.1 and hemoglobin is 8.5. The platelet count is 351. BUN to creatinine ratio is 60 to 1.67. Other electrolytes are within normal limits. IMPRESSION: 1. Acute on chronic anemia related to chronic blood loss. 2. Acute on chronic respiratory failure. 3. Renal failure, stage IV. 4. Ovarian cancer. 5. Diabetes. 6. Moderate protein-calorie malnutrition. PLAN: 1. Continue trach collar as tolerated and try to wean patient. 2. Continue to monitor creatinine. 3. Continue to monitor for any source of bleeding. 4. Continue enteral feedings. 5. DVT prophylaxis. 6. Long-term prognosis remains poor. 7. Case discussed with the patient, nursing staff, and Respiratory. Greater than 35 minutes in direct critical care time. MD LIVAN Duarte/SHANE /[id number]
[2019-11-14] MEDS ORDERED: ENOXAPARIN 30 MG/0.3 ML SYR SC SCH (17:00)
--- NOTE | 2019-11-14 19:03 | Diagnostic Imaging Report ---
EXAM: CT Chest WITHOUT contrast INDICATION: ^Pneumonia COMPARISON: None TECHNIQUE: Chest was scanned utilizing a multidetector helical scanner from the lung apex through the level of the adrenal glands without administration of IV contrast. Absence of intravenous contrast decreases sensitivity for detection of lymphadenopathy and vascular pathology. Coronal and sagittal reformations were obtained. Routine protocol was performed. IV CONTRAST: None COMPLICATIONS: None RADIATION DOSE: Total DLP: 324.69 mGy*cm Estimated effective dose: (DLP x 0.014 x size factor) mSv CTDIvol has been reviewed. It is below the limits set by the Radiation Protocol Committee (RPC). FINDINGS: LUNGS AND AIRWAYS: Multiple round groundglass opacities are seen bilaterally compatible with pneumonia. Subsegmental atelectasis are seen in lung bases. There is tracheostomy tube in place. PLEURA: There are small bilateral pleural effusions. HEART AND MEDIASTINUM: The thyroid gland is normal. No mediastinal, hilar or axillary lymphadenopathy. The heart is normal in size.. There is a small pericardial effusion. There are moderate atherosclerotic calcifications in the aorta and coronary arteries. UPPER ABDOMEN: Unremarkable. BONES: There are degenerative changes in the thoracic spine. SOFT TISSUES: Unremarkable. IMPRESSION: Multiple bilateral round groundglass opacities compatible with pneumonia. Bilateral small pleural effusions. Signed by: Jesus Armijo MD on 11/14/2019 7:00 PM
--- NOTE | 2019-11-14 19:17 | Consultation ---
DATE OF CONSULTATION: HISTORY OF PRESENT ILLNESS: Ms. Alvarado is an 84-year-old female, who comes skilled care facility. [place] It is unfortunate that she is coming in the mid of COVID-19 outbreak. She is an 84-year-old female, chronic ventilator, history of ovarian cancer, debilitated. She was originally . She had surgery. She had respiratory failure, tracheostomy . From there, she went to [facility]. Sometimes, she was transferred to us because of anemia because her hemoglobin was low. However, there was a concern she may have COVID-19, so she was admitted to the intensive care unit, but this was ordered. The patient does not really provide any meaningful information. History was taken mainly from the chart. PAST MEDICAL HISTORY: Chronic respiratory failure, chronic kidney disease ovarian cancer, hypertension, tracheostomy. PAST SURGICAL HISTORY: As above. ALLERGIES: NKA. SOCIAL HISTORY: She used to be a smoker, but not recently from a penitent[facility]. FAMILY HISTORY: Could not be obtained. REVIEW OF SYSTEMS: Could not be obtained. LABORATORY DATA: Her lab was reviewed. White count 13.7, hemoglobin 8.5 came up from 6.9. Sodium 136, potassium 4.1, creatinine 1.67. She is currently on ceftriaxone, azithromycin, and Risperdal. PHYSICAL EXAMINATION: GENERAL: She is currently alert, does not seem to be in acute distress. VITAL SIGNS: Stable, afebrile. HEENT: She is not icteric. CHEST: A few crackles. COR: No murmurs, soft. IMPRESSION: 1. Anemia, present on admission. Workup is in progress. 2. Pneumonia, probably aspiration. Continue Rocephin. Can discontinue azithromycin. She is afebrile, probably 3 days would be more than adequate. 3. COVID-19 . We will follow with you. Thank you for asking me to see this patient. MD SHANKAR Neri/SHANE /[id number]
[2019-11-14] MEDS ORDERED: MAGNESIUM HYDROXIDE 30 ML UDC PO NR (19:45)
[2019-11-14] MEDS: INSULIN GLARGINE 100 UNITS/ML VIAL SQ SCH (21:00)
[2019-11-14] MEDS: RISPERIDONE 0.5 MG TAB PO SCH (21:48)
[2019-11-15] VITALS (27 sets, daily range): BP systolic 126–171; BP diastolic 56–125
[2019-11-15] MEDS: LORAZEPAM 0.5 MG TAB PO PRN (00:24)
[2019-11-15 05:04] LABS: BASOPHILS # (AUTO) 0.1 (0.0-0.1); BASOPHILS % 0.4 % (0.0-1.0); EOSINOPHILS # (AUTO) 0.7 (0.0-0.4); EOSINOPHILS % 5.7 % (0.0-6.0); HEMATOCRIT 29.6 % (34.2-44.1); HEMOGLOBIN 9.6 g/dL (12.0-16.0); LYMPHOCYTES # (AUTO) 1.6 (1.0-3.2); LYMPHOCYTES % 12.9 % (18.0-39.1); MEAN CORPUSCULAR HEMOGLOBIN 25.4 pg (28-32); MEAN CORPUSCULAR HGB CONC 32.4 g/dL (31-35); MEAN CORPUSCULAR VOLUME 78.3 fL (81-99); MONOCYTES # (AUTO) 0.9 (0.2-0.8); MONOCYTES % 7.7 % (4.4-11.3); NEUTROPHILS # (AUTO) 8.9 (2.1-6.9); NEUTROPHILS % 72.7 % (38.7-80.0); PLATELET COUNT 377 x10e3/uL (140-360); RED BLOOD COUNT 3.78 x10e6/uL (3.6-5.1); RED CELL DISTRIBUTION WIDTH 17.6 % (11.7-14.4)
[2019-11-15 05:31] LABS: ANION GAP 15.1 mmol/L (8-16); CALCIUM 9.5 mg/dL (8.4-10.2); CREATININE, SERUM 1.53 mg/dL (0.57-1.11); POTASSIUM 5.1 mmol/L (3.5-5.1)
[2019-11-15] MEDS: FAMOTIDINE 20 MG TAB PO SCH ×2 (07:28→15:38)
[2019-11-15] MEDS: INSULIN REGULAR, HUMAN 100 UNIT/1 ML 3ML VIAL SQ SCH ×4 (07:31→22:00)
--- NOTE | 2019-11-15 11:38 | Progress Note ---
DATE: 11/15/2019 SUBJECTIVE: The patient is awake and conversant. She is not having fevers. She does complain of some abdominal discomfort, but no nausea or vomiting. PHYSICAL EXAMINATION: VITAL SIGNS: The patient is afebrile. The blood pressure is 137/58 and the saturation is 100%. She is on a PRVC at a rate of 16 with a tidal volume of 400. FiO2 is set at 40%. HEENT: Shows no facial swelling or erythema. There is a tracheostomy site. The site is clean. There is no drainage. CARDIAC: Reveals regular rate and rhythm with normal S1, S2. LUNGS: Auscultation of lungs shows decreased breath sounds at the bases. There is no wheezing. ABDOMEN: Soft, nontender. There is a feeding tube in place. EXTREMITIES: Show no leg edema or calf tenderness. There is no cyanosis or clubbing. SKIN: Shows no rashes. NEUROLOGICAL: Shows no focal abnormalities. LABORATORY DATA: BUN to creatinine ratio is 53 to 1.53. The other electrolytes are within normal limits. The white blood cell count is 12.2 and hemoglobin is 9.6. The platelet count is 377. IMPRESSION: 1. Acute on chronic anemia related to chronic blood loss. 2. Acute on chronic respiratory failure. 3. Atypical pneumonia. 4. Ovarian cancer. 5. Diabetes. PLAN: 1. Continue current antibiotics. 2. Continue current ventilator settings. 3. Await serologies. 4. Continue enteral feedings. Josh Powers MD [facility]/SHANE /[id number]
[2019-11-15] MEDS: AZITHROMYCIN 500MG/NS 250 ML 250 ML IV SCH (12:21)
[2019-11-15] MEDS: CEFTRIAXONE SOD 2 GM/NS 100 ML 100 ML IV SCH (12:21)
--- NOTE | 2019-11-15 14:00 | Progress Note ---
DATE: Internal Medicine Progress Note SUBJECTIVE: The patient is on the ventilator right now. PHYSICAL EXAMINATION: HEART: Showed regular rhythm. Normal S1 and S2 sound. LUNGS: Clear bilaterally. VITAL SIGNS: We have temperature 98.1, heart rate 65 per minute, respiratory rate 16 per minute, blood pressure 137/58, pulse oximetry 100%. LABORATORY DATA: On the CBC; white count 12.21, hemoglobin 9.6, hematocrit 29.6, and platelet count 377,000. On the CMP; sodium 138, potassium 5.1, chloride 101, CO2 of 27, BUN 53, creatinine 1.53, glucose 140, calcium 9.5. Coronavirus test is pending. On the chest CT, we have multiple bilateral ground-glass opacities compatible with pneumonia, bilateral pleural effusions. FINAL IMPRESSION: 1. Acute anemia. 2. Chronic respiratory failure. 3. Hypertension. 4. Uncontrolled diabetes mellitus type 2 with chronic renal failure. 5. Chronic obstructive pulmonary disease. 6. Chronic renal failure stage 4. 7. Aspiration pneumonia. PLAN OF TREATMENT: We are going to continue with current medication regimen, which includes the following medications. We have Zithromax 500 mg IV daily, ceftriaxone 2 g IV once a day, albuterol and Atrovent q.4 hours p.r.n. for shortness of breath. Continue Pepcid 20 mg twice a day, Lantus 5 units at bedtime, lorazepam 0.5 mg q.6 hours as needed for anxiety, Zofran 4 mg IV every 4 hours as needed for nausea and vomiting, Risperdal 0.5 mg at bedtime. Monitor blood sugar before meals and at bedtime. Also, stool guaiac is positive. Really now coronavirus also, the patient will stay until we have the report on the test. In the meantime, contact respiratory isolation. MD ROHAN Turcios/MODL /[id number]
--- NOTE | 2019-11-15 16:14 | Progress Note ---
DATE: SUBJECTIVE: Ms. Alvarado remains in intensive care unit, but clinically looks stable. She is awake, communicate, high fever, and some abdominal discomfort. No nausea, no vomiting, no diarrhea. REVIEW OF SYSTEMS: Otherwise unremarkable. PHYSICAL EXAMINATION: GENERAL: She is currently alert. There is no fever since admission. VITAL SIGNS: Stable. Currently afebrile. HEENT: Not icteric. NECK: Supple. CHEST: Clear bilateral. HEART: S1 and S2. No murmur. ABDOMEN: Soft. Bowel sounds present. EXTREMITIES: No edema. LABORATORY DATA: Her white count is 12, hemoglobin 9.6. COVID-19 is still pending. IMPRESSION: Anemia on admission. Probably aspiration pneumonia, on Rocephin. COVID-19 is still pending. Clinically looks better today. Could be transferred back to skilled care facility if she continued to be stable and improving. MD SHANKAR Neri/SHANE /[id number]
[2019-11-15] MEDS: RISPERIDONE 0.5 MG TAB PO SCH (21:32)
[2019-11-15] MEDS: INSULIN GLARGINE 100 UNITS/ML VIAL SQ SCH (22:00)
[2019-11-16] VITALS (16 sets, daily range): BP systolic 112–178; BP diastolic 52–105
[2019-11-16] MEDS: LORAZEPAM 0.5 MG TAB PO PRN ×2 (00:08→11:10)
[2019-11-16 05:52] LABS: BASOPHILS # (AUTO) 0.1 (0.0-0.1); BASOPHILS % 0.4 % (0.0-1.0); EOSINOPHILS # (AUTO) 0.7 (0.0-0.4); EOSINOPHILS % 5.9 % (0.0-6.0); HEMATOCRIT 28.3 % (34.2-44.1); HEMOGLOBIN 9.1 g/dL (12.0-16.0); LYMPHOCYTES # (AUTO) 1.5 (1.0-3.2); LYMPHOCYTES % 12.6 % (18.0-39.1); MEAN CORPUSCULAR HEMOGLOBIN 24.9 pg (28-32); MEAN CORPUSCULAR HGB CONC 32.2 g/dL (31-35); MEAN CORPUSCULAR VOLUME 77.3 fL (81-99); MONOCYTES # (AUTO) 0.9 (0.2-0.8); MONOCYTES % 7.7 % (4.4-11.3); NEUTROPHILS # (AUTO) 8.8 (2.1-6.9); NEUTROPHILS % 72.7 % (38.7-80.0); PLATELET COUNT 378 x10e3/uL (140-360); RED BLOOD COUNT 3.66 x10e6/uL (3.6-5.1); RED CELL DISTRIBUTION WIDTH 17.6 % (11.7-14.4)
[2019-11-16 06:08] LABS: ANION GAP 15.4 mmol/L (8-16); CALCIUM 9.6 mg/dL (8.4-10.2); CREATININE, SERUM 1.33 mg/dL (0.57-1.11); POTASSIUM 4.4 mmol/L (3.5-5.1)
[2019-11-16] MEDS: INSULIN REGULAR, HUMAN 100 UNIT/1 ML 3ML VIAL SQ SCH ×4 (07:23→20:17)
[2019-11-16] MEDS: FAMOTIDINE 20 MG TAB PO SCH ×2 (07:47→16:08)
--- NOTE | 2019-11-16 08:55 | Progress Note ---
DATE: SUBJECTIVE: The patient has no new complaints. She is not having fevers. Her blood counts have returned to normal. PHYSICAL EXAMINATION: VITAL SIGNS: The patient is afebrile. The blood pressure is 122/60 and saturation is 100%. HEENT: Shows no facial swelling or erythema. There is a tracheostomy tube in good position. The site looks clean. CARDIAC: Reveals regular rate and rhythm with normal S1 and S2. LUNGS: Auscultation of lungs reveals crackles at the bases. There is no wheezing. ABDOMEN: Soft and nontender. There is a feeding tube. NEUROLOGIC: Shows diffuse weakness, but no focal abnormalities. LABORATORY DATA: White blood cell count is 12.1, hemoglobin is 9.1, and platelet count is 378. BUN to creatinine ratio is 50 to 1.33. The other electrolytes are within normal limits. Mane virus serology is still pending. ASSESSMENT: 1. Anemia secondary to acute on chronic blood loss. 2. Aspiration pneumonia. 3. Advanced ovarian carcinoma. 4. Diabetes. 5. Renal failure, stage IV. 6. Hypertension. PLAN: 1. Continue current antibiotics. 2. The patient as tolerated CPAP. She would be a candidate for weaning trials. 3. Complete antibiotics. 4. Await Serology testing. 5. Okay for transfer [facility] to [facility] once serology is negative. Josh Powers MD [facility] /[id number]
[2019-11-16] MEDS ORDERED: LORAZEPAM 0.5 MG TAB PEG SCH (12:15)
[2019-11-16] MEDS: AZITHROMYCIN 500MG/NS 250 ML 250 ML IV SCH (13:53)
[2019-11-16] MEDS: CEFTRIAXONE SOD 2 GM/NS 100 ML 100 ML IV SCH (13:53)
--- NOTE | 2019-11-16 14:17 | Consultation ---
DATE OF CONSULTATION: 11/16/2019 HISTORY OF PRESENT ILLNESS: Ms. Megan Alvarado is known to our Nephrology Service. She is an 84-year-old patient with tracheostomy, feeding tube, and dependent on activities of daily living. She has [facility] with anemia and apparent respiratory failure. Currently, they are ruling out COVID. She is in complete isolation. Has an indwelling Watson catheter. She is nonoliguric. She does not appear to be in respiratory distress. She is bilateral wrist restrained, a right forearm splint noted. She has metastatic ovarian cancer, status post debulking of ovarian cancer; history of prior tracheostomy; chronic respiratory failure; acute kidney injury, requiring dialysis, now recovered; history of pneumonia, nosocomial; history of anemia; and protein-calorie malnutrition. She is status post 2 units packed RBC transfusion. She is currently lying supine, in no apparent distress. She is allergic to morphine. Currently, she is on azithromycin and ceftriaxone. She is on albuterol and Atrovent nebulizer. She received one time dose of Lasix after packed RBC transfusion. She is on risperidone 0.5 mg at bedtime, lorazepam p.r.n., and insulin sliding scale. SOCIAL HISTORY: The patient does not smoke or drink. Has a supportive family. FAMILY HISTORY: Significant for hypertension. PHYSICAL EXAMINATION: VITAL SIGNS: Blood pressure is 133/66, pulse rate 58. Vital signs noted on monitor. Remains in sinus rhythm. HEAD AND NECK: Tracheostomy noted. PEG tube noted. GENERAL: Restraint. Exam as per program facilitator, the patient is in COVID isolation. : Indwelling Watson catheter. Good urine output. EXTREMITIES: Lower extremity, no apparent edema. LABORATORY DATA: Sodium 142, potassium 4.4, bicarb 27, and creatinine 1.33. Hemoglobin 9.1. IMPRESSION AND PLAN: Chronic kidney disease stage 3, electrolyte imbalance, anemia status post transfusion, hemoglobin 9.1. Further laboratory test noted. LFTs within normal range. We will continue to monitor the patient's kidney function and urine output with you. MD EFREN Saravia/SHANE /[id number]
--- NOTE | 2019-11-16 15:46 | Progress Note ---
DATE: SUBJECTIVE: Ms. Alvarado is an 84-year-old, status post tracheostomy feeding tube placement, very the dependent from [facility]. The patient comes in with shortness of breath. The patient is noncommunicative. Remains in intensive care unit. IMPRESSION: 1. Anemia, on admission. 2. Aspiration pneumonia, on admission. 3. From Infectious Disease point of view, the patient is stable. COVID-19 is still pending, but from Infectious Disease point of view, once the patient is stable, could be discharged to skilled care facility. Continue with isolation until we get the results. MD SHANKAR Neri/SAHNE /[id number]
[2019-11-16] MEDS: INSULIN GLARGINE 100 UNITS/ML VIAL SQ SCH (20:17)
[2019-11-16] MEDS: RISPERIDONE 0.5 MG TAB PO SCH (21:11)
[2019-11-17] VITALS (17 sets, daily range): BP systolic 117–181; BP diastolic 50–93
[2019-11-17] MEDS: LORAZEPAM 0.5 MG TAB PO PRN ×2 (02:44→08:44)
[2019-11-17] MEDS: FAMOTIDINE 20 MG TAB PO SCH ×2 (08:21→16:30)
[2019-11-17] MEDS: INSULIN REGULAR, HUMAN 100 UNIT/1 ML 3ML VIAL SQ SCH ×4 (08:22→21:00)
[2019-11-17] MEDS: CEFTRIAXONE SOD 2 GM/NS 100 ML 100 ML IV SCH (14:15)
[2019-11-17] MEDS: AZITHROMYCIN 500MG/NS 250 ML 250 ML IV SCH (14:15)
--- NOTE | 2019-11-17 15:00 | NUR ---
LAB RESULTS STILL NOT IN COMPUTER FOR COVID FINDINGS. UNABLE TO FAX CLINICALS WITHOUT THE RESULTS.
--- NOTE | 2019-11-17 16:47 | Progress Note ---
DATE: SUBJECTIVE: The patient has no new issues. She is awaiting serology testing for her coronavirus. PHYSICAL EXAMINATION: VITAL SIGNS: The patient is afebrile. The blood pressure is 119/53 and pulse is 83. The patient remains on a mechanical ventilator with a PRVC set at a rate of 16. FiO2 is set of 40%, PEEP set at 5. HEENT: Shows no facial swelling or erythema. The tracheostomy site is clean. CARDIAC: Reveals regular rate and rhythm with normal S1 and S2. LUNGS: Auscultation of lungs reveals rhonchorous breath sounds bilaterally. There is no wheezing. ABDOMEN: Soft, nontender. There is no rebound or guarding. EXTREMITIES: Show no leg edema or calf tenderness. There is no cyanosis or clubbing. SKIN: Shows no rashes. NEUROLOGICAL: Shows no focal abnormalities. IMPRESSION: 1. Acute on chronic blood loss. 2. Aspiration pneumonia. 3. Monitor renal function, acute on chronic renal failure. 4. Ovarian cancer. 5. Diabetes. PLAN: 1. The patient is stable for transfer back to [facility] from my perspective. 2. The patient could remain in isolation at [facility] facility and await the final results of her serology. 3. Continue insulin regimen. 4. Complete current antibiotics. Josh Powers MD [facility]/MOD[facility] /[id number]
--- NOTE | 2019-11-17 17:41 | Progress Note ---
DATE: SUBJECTIVE: Ms. Alvarado is stable. There is no new complaint. PHYSICAL EXAMINATION: GENERAL: She is alert. VITAL SIGNS: Stable, afebrile. HEENT: She is not icteric. NECK: Supple. CHEST: Few crackles. COR: S1, S2. ABDOMEN: Soft. Possible tenderness. EXTREMITIES: No edema. IMPRESSION: 1. Anemia, present on admission. 2. Aspiration pneumonia. 3. History of diabetes. 4. History of renal failure stage 4, stable from Infectious Disease point of view. Transferred back to her skilled care facility. They are waiting COVID-19 status for placement. Discussed with the medical team. We will follow. MD SHANKAR Neri/SHANE /[id number]
--- NOTE | 2019-11-17 18:45 | NUR ---
Report received. Assumed care. Assessment done. See interventions. Trach to vent. Vent settings: TV 400, FIO2 40%, PRVC 16 & PEEP 5cm. Tube feeding Glucerna 1.2 @ 40ml/hr with H20 flushes 40ml Q4H. Addendum: 11/17/19 at 2017 by Leslie Walsh RN Tube feeding rate is 50ml/hr
[2019-11-17] MEDS: RISPERIDONE 0.5 MG TAB PO SCH (21:00)
[2019-11-17] MEDS: INSULIN GLARGINE 100 UNITS/ML VIAL SQ SCH (21:00)
--- NOTE | 2019-11-17 22:45 | NUR ---
Cleaned for large amt soft brown stool. Complete bath given. Partial linens changed.
--- NOTE | 2019-11-17 23:26 | NUR ---
Sats suddenly dropped to 46%. Suctioned and sighed with 100%. Sats came up but then went down again. RT called to bedside. Bagged and suctioned large bloody mucous plug. Sats returned to normal.
[2019-11-18] VITALS (15 sets, daily range): BP systolic 107–160; BP diastolic 44–112
--- NOTE | 2019-11-18 01:05 | NUR ---
Heart rate drops in the 30s-40s but comes back up.
--- NOTE | 2019-11-18 02:00 | NUR ---
Heart rate cont to drop to 30-50 range. Sats 100%.
--- NOTE | 2019-11-18 05:42 | NUR ---
Cleaned for mod soft brown stool. TF leaked on bed. Complete bedding change.
[2019-11-18] MEDS: INSULIN REGULAR, HUMAN 100 UNIT/1 ML 3ML VIAL SQ SCH ×2 (07:30→13:13)
--- NOTE | 2019-11-18 08:06 | NUR ---
CALLED LAB TO SPEAK WITH CATHRYN TO SEE ABOUT RESULTS, WAITING RECORD CENTER COORDINATOR BACK.
--- NOTE | 2019-11-18 08:52 | NUR ---
GOT RESULTS, FAXED TO FACILITY AND TEXTED TO MAKE SURE RECEIVING FAX. WILL UPDATE WHEN GET ROOM.
[2019-11-18] MEDS: FAMOTIDINE 20 MG TAB PO SCH (09:00)
--- NOTE | 2019-11-18 09:04 | Progress Note ---
DATE: SUBJECTIVE: Coronavirus serology is negative. The patient is afebrile. She remains on the same ventilator settings as an outpatient. PHYSICAL EXAMINATION: VITAL SIGNS: The patient is afebrile. The blood pressure is 146/55 and saturation is 100%. Respiratory rate is 16. She is set on a PRVC. HEENT: Shows no facial swelling or erythema. CARDIAC: Reveals regular rate and rhythm with normal S1 and S2. RESPIRATORY: Auscultation of lungs reveal clear breath sounds bilaterally. There is no wheezing. ABDOMEN: Soft and nontender. There is no rebound or guarding. EXTREMITIES: Show no leg edema or calf tenderness. There is no cyanosis or clubbing. SKIN: Shows no rashes. NEUROLOGICAL: Shows no focal abnormalities. IMPRESSION: 1. Acute on chronic blood loss anemia. 2. Resolving aspiration pneumonia. 3. Chronic renal failure, stage 4. 4. Ovarian cancer. 5. Diabetes. PLAN: 1. The patient is stable for transfer back to [facility] facility. 2. She can complete her course of antibiotics orally or through the enteral tube. 3. Continue to monitor blood sugars and give insulin as needed. Josh Powers MD [facility]/MOD[facility] /[id number]
--- NOTE | 2019-11-18 10:11 | NUR ---
RETIREMENT FACILITY DISCHARGE INFORMATION PATIENT HAS BEEN ACCEPTED TO: NAME: [facility] ADDRESS: [id number] ACCEPTING CW OPERATOR: EDDIE SOLOMON MD: LILLIAN ROOM: [address] NURSE CALL REPORT TO: [phone] IMM SIGNED AND OBTAINED (if applicable): IMM THE FOLLOWING DOCUMENTS MUST ACCOMPANY PATIENT FOR TRANSFER: COPIED CHART: PACKET
--- NOTE | 2019-11-18 10:13 | NUR ---
CALLED FAMILY SHAHZAD [phone] EDUCATED ABOUT IMM
--- NOTE | 2019-11-18 11:54 | Progress Note ---
DATE: SUBJECTIVE: Ms. Alvarado remains in intensive care unit, intubated, but comfortable. OBJECTIVE: VITAL SIGNS: Stable afebrile. HEENT: She is not icteric. NECK: Supple. CHEST: Few crackles. COR: S1 and S2. No murmur. ABDOMEN: Soft. COVID-19 came back negative. LABORATORY DATA: Reviewed. IMPRESSION: Aspiration pneumonia, resolved. Anemia, stable. The patient finished her antibiotic, could be discharged back to nursing to skilled care facility. From Infectious Disease point of view, no more antibiotic, however, her prognosis remains poor. The patient is at risk for recurrent admission. MD SHANKAR Neri/MODAnahi /[id number]
--- NOTE | 2019-11-18 13:15 | NUR ---
COVID-19 results came back not detected. Dr. Jay, Dr. Anahi Powers, Dr. Bessy Pires aware. Dr. Bessy Pires gave orders for pt to [facility]. Med list reviewed with Dr. Jay and Bessy Pires. Pt's granddaughter Samuel Baig gave permission to use [facility] for transfer. Report called to [facility]. Pt picked up by EMS, respiratory at bedside at 1315. No s/s of distress noted.
--- NOTE | 2019-12-24 03:52 | Discharge Summary ---
CHIEF COMPLAINT: Chronic vent status, now with issues of anemia. FINAL DIAGNOSES: 1. Respiratory failure, trach, vent. 2. Hypertension. 3. Anemia. 4. Ovarian CA. DISPOSITION: Returning back to skilled facility. HOSPITAL COURSE: An 84-year-old female on chronic vent. Has history of ovarian CA, recently admitted at [facility], underwent surgery. The procedure was complicated by her chronic respiratory failure. She received a tracheostomy. She was moved to [facility], then she went to [facility] the, further skilled care and for she was presented to the ER here due to low hemoglobin. There has been no evidence of any active bleeding outside. 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 Admission will be made. She will be typed and crossmatched for packed RBCs. She will be undergoing an anemia panel. Her daily medications will continue. She will be requiring further pulmonary followup while in ICU because of her chronic vent status. With her vent condition, she was being seen by Dr. Powers, Pulmonary and with his review, his impression was acute on chronic anemia related to chronic blood loss, chronic respiratory failure, ovarian cancer, renal failure stage 4, diabetes, moderate protein-calorie malnutrition. The patient will be receiving 2 units of packed RBCs. We will be assessing for any source of bleeding. Continue current vent study setting to monitor and controlling her blood sugars, and managing her COPD and she will be placed on DVT prophylaxis. From the ER, she was placed in ICU due to the vent needs being managed by Dr. Powers. She is also undergoing GI follow being seen by Dr. Jitendra Pires and his impression following evaluation, the patient has anemia of chronic disease receiving 2 units of packed RBC, and acute respiratory failure, vent dependent, findings of pneumonia. The patient is being evaluated for COVID-19. The patient was continuing on her med sheet [facility]. She was continued on hemoglobin. The COVID study was performed result is pending. Discussions have been made to transfer the patient back to the [facility], if the COVID-19 returned negative. The study did return negative and she was cleared for discharge back to the [facility] on vent support at that location. IMAGING: Chest x-ray findings revealed improved right-sided pneumonia. She has persistent retrocardiac airspace opacity suggestive of atelectasis or infiltrate. CT chest shows evidence of multiple bilateral ground-glass opacity compatible with pneumonia. Bilateral small pleural effusion. I hemoglobin rebounded to 9.1 post transfusion. CBC of the patient's initial study; white cell count 12,500. Initial H and H were 6.9 and 21.3. She was transfused showing hemoglobin response to 8.5 with further slow upward response at 9.6, final study 9.1. White blood cell count peaked at 13,100, final study 12,100 at the time of transfer. Coronavirus was negative. Influenza studies A and B were negative. The occult blood was negative. Chemistry reveals initial panel, this shows stable electrolytes. Kidney functions; BUN 63, creatinine 1.61, glucose 118. An anemia panel was conducted due to her blood picture showing a normal iron and normal TIBC, percent saturation was normal, transferrin was normal. Ferritin was elevated at 2354.88. Vitamin B12 was elevated at 13.2. Further blood sugar monitoring was maintained. Values were as high as in the 190. Final study 154 at the time of transfer. She reached the potential recovery and she was transferred back to the [facility] . She will continue her current orders. Continue her current tube feeding. The patient will remain bed-bound. I will be monitoring and managing her condition at that facility by evaluating her status daily. The staff will be also contact me as needed. Dictated by PAUL Betts Romel Pires MD [facility] /[id number]
== END 2019-11-18 13:15 | DRG 207 ==
LOC: ER 15:32 → ERHOLD 16:39 → ICU 17:30 → OBSVTOIN 11-15 06:03
PROC: 5A1955Z Respiratory Ventilation, Greater than 96 Consecutive Hours (ICD-10-PCS; principal; 2019-11-15)
PROC: 30233N1 Transfusion of Nonautologous Red Blood Cells into Peripheral Vein, Percutaneous Approach (ICD-10-PCS; 2019-11-15)
DX: J96.20 Acute and chronic respiratory failure, unspecified whether with hypoxia or hypercapnia (principal); J69.0 Pneumonitis due to inhalation of food and vomit; D62 Acute posthemorrhagic anemia; N18.4 Chronic kidney disease, stage 4 (severe); E44.0 Moderate protein-calorie malnutrition; C56.9 Malignant neoplasm of unspecified ovary; N17.9 Acute kidney failure, unspecified; Z99.11 Dependence on respirator [ventilator] status; J44.9 Chronic obstructive pulmonary disease, unspecified; D63.8 Anemia in other chronic diseases classified elsewhere; E11.22 Type 2 diabetes mellitus with diabetic chronic kidney disease; Z87.891 Personal history of nicotine dependence; E87.8 Other disorders of electrolyte and fluid balance, not elsewhere classified; I12.9 Hypertensive chronic kidney disease with stage 1 through stage 4 chronic kidney disease, or unspecified chronic kidney disease; Z93.0 Tracheostomy status; Z11.59 Encounter for screening for other viral diseases; Z74.01 Bed confinement status
CPT/HCPCS: 36415; 71045; 71250; 80048; 80053; 82270; 82607; 82728; 82948; 83540; 84466; 85025; 85610; 85730; 86850; 86900; 86920; 87400; 87635; 94002; 94003; 96372; 99284; G0378; J0456; J0696; J1815; J1817; J1940; J2405; J7050; P9016

== ENCOUNTER 2019-11-23 20:00 | Emergency (ER) | payer MEDICARE, BC ==
[~2019-11-23] VITALS: Ht 162.6 cm; Wt 54.0 kg
--- NOTE | 2019-11-23 20:35 | NUR ---
SPOKE WITH NAFISA JAIME AT [facility], PT NOT A CANDIDATE DUE TO CA. CASE # [id number]
--- NOTE | 2019-11-23 20:41 | NUR ---
SPOKE WITH EARTH SCIENCE PROFESSOR AND INFORMATION GIVEN. PT WILL BE PLACED IN TRIAGE AND ME'S OFFICE WILL CALL BACK
--- NOTE | 2019-11-23 20:45 | NUR ---
PT RECEIVED 5 EPI AND DOPAMINE PREMIUM CARD CANCELLATION CLERK BY EMS WITH [facility].
--- NOTE | 2019-11-23 21:12 | NUR ---
CASE RELEASED BY [place], HETAL MUELLER. CASE # [id number].
--- NOTE | 2019-11-23 22:50 | NUR ---
PTS FAMILY REQUEST REMAINS BE RELEASED TO [facility], [address] [place] [address]
--- NOTE | 2019-11-24 01:00 | NUR ---
PTS REMAINS RELEASED TO [facility]
== END 2019-11-24 01:00 | disposition expired ==
LOC: ER 20:00
DX: I46.9 Cardiac arrest, cause unspecified (principal); I10 Essential (primary) hypertension; E11.9 Type 2 diabetes mellitus without complications; J44.9 Chronic obstructive pulmonary disease, unspecified; Z93.0 Tracheostomy status; N17.9 Acute kidney failure, unspecified
CPT/HCPCS: 99285